=== PATIENT | female | born 1930 | race Caucasian/White ===

== ENCOUNTER 2017-08-17 17:39 | Emergency (ER) | payer MEDICARE ==
[2017-08-17 17:47] VITALS: BP 96/57
--- NOTE | 2017-08-17 18:50 | EDM.PDOC ---
ED HPI GENERAL MEDICAL PROBLEM - General Chief Complaint: Cardiovascular Problem Stated Complaint: CHF Time Seen by Provider: 08/17/17 17:46 Source of Information: Reports: Patient, RN History Limitations: Reports: Altered Mental Status, Physical Impairment - History of Present Illness INITIAL COMMENTS - FREE TEXT/NARRATIVE: 87 y.o.w.f. with H/O CHF was sent to the ed because her lasix was increased today (?). No Family no nursing staff was present. pt is no able to give a HPI due to lethargy. Pulse 95% on RA. Pulse 72 Temp 97.6 BP 120/49 RR 14-16, DNR/ DNI Onset Date: 08/15/17 Onset Time: 20:00 Duration: Day(s):, Intermittent, Waxing/Waning Location: Reports: Chest, Generalized - Related Data Allergies Allergy/AdvReac Type Severity Reaction Status Date / Time codeine Allergy unknown Verified 08/17/17 17:44 Corticosteroids Allergy unknown Verified 08/17/17 17:44 (Glucocorticoids) cortisone Allergy unknown Verified 08/17/17 17:44 loperamide Allergy unknown Verified 08/17/17 17:44 oxycodone Allergy unknown Verified 08/17/17 17:44 Penicillins Allergy unknown Verified 08/17/17 17:44 prednisone Allergy unknown Verified 08/17/17 17:44 prochlorperazine Allergy unknown Verified 08/17/17 17:44 [From Compazine] prochlorperazine edisylate Allergy unknown Verified 08/17/17 17:44 [From Compazine] prochlorperazine maleate Allergy unknown Verified 08/17/17 17:44 [From Compazine] red (food color) Allergy unknown Verified 08/17/17 17:44 ropinirole Allergy unknown Verified 08/17/17 17:44 nail bulgarian Allergy Cannot Uncoded 08/17/17 17:44 Remember Home Meds: Home Meds Diltiazem [Cardizem SR] 120 mg PO DAILY 06/24/15 [History] Levothyroxine Sodium [Synthroid] 75 mcg PO SUMOWEFRSA 06/24/15 [History] Levothyroxine [Synthroid] 88 mcg PO TUTH 06/24/15 [History] Magnesium Hydroxide [Milk of Magnesia] 30 ml PO BEDTIME PRN 06/24/15 [History] Polyethylene Glycol 3350 [MiraLAX] 1 capful PO DAILY 06/24/15 [History] Acetaminophen/HYDROcodone [[place] 325-5 MG] 1 tab PO Q3H PRN #30 tablet 06/28/15 [Rx] Aspirin [Halfprin] 81 mg PO DAILY #30 tab.ec 06/28/15 [Rx] Metoprolol Tartrate [Lopressor] 25 mg PO BID tablet 06/28/15 [Rx] Pantoprazole [ProTONIX] 40 mg PO DAILY@0600 tab.cr 06/28/15 [Rx] Past Medical History - Past Health History Medical/Surgical History: Denies Medical/Surgical History Cardiovascular History: Reports: Heart Failure, Other (See Below) Other Cardiovascular History: anemia Gastrointestinal History: Reports: Other (See Below) Other Gastrointestinal History: glucose intolerance Other Musculoskeletal History: patient has generalized weakness and a history of falls, spinal stenosis, restless leg syndrome Other Neuro History: anxiety Other Endocrine/Metabolic History: glucose intolerance, hypothyroidism, Social & Family History - Tobacco Use Smoking Status *Q: Unknown Ever Smoked Second Hand Smoke Exposure: No - Caffeine Use Caffeine Use: Reports: Coffee - Recreational Drug Use Recreational Drug Use: No ED ROS GENERAL - Review of Systems Review Of Systems: Unable To Obtain ED EXAM, GENERAL - Physical Exam Exam: See Below Exam Limited By: Physical Impairment General Appearance: Lethargic, Mild Distress, Obese (morbid) Eye Exam: Bilateral Eye: Normal Inspection Ears: Normal External Exam Ear Exam: Bilateral Ear: Auricle Normal Nose: Normal Inspection Throat/Mouth: Normal Lips, No Airway Compromise Head: Atraumatic, Normocephalic Neck: Normal Inspection, Supple, Non-Tender Respiratory/Chest: Decreased Breath Sounds (poor insp effort) Cardiovascular: Normal Peripheral Pulses GI/Abdominal: Normal Bowel Sounds, Soft (Female) Exam: Deferred Rectal (Female) Exam: Deferred Back Exam: Normal Inspection Extremities: Pedal Edema (chronic) Neurological: Inattentive, Other (unable to ambulate, bedridden) Psychiatric: Depressed Mood Skin Exam: Warm, Dry Lymphatic: No Adenopathy Course - Vital Signs Text/Narrative:: 87 y.o.w.f. with H/O CHF was sent to the ed because her lasix was increased today (?). No Family no nursing staff was present. pt is no able to give a HPI due to lethargy. Pulse 95% on RA. Pulse 72 Temp 97.6 BP 120/49 RR 14-16, DNR/ DNI PE: Morbid obese W F with poor insp efforts and basiaclly Nl vitals after lasix was given Imaging: CXR: CHF, official report is pending Impression: CHG, DNR/DNI Plan: D/C with instructions Last Recorded V/S: Last Vital Signs Temp 36.7 C 08/17/17 17:46 Pulse 71 08/17/17 17:46 Resp 16 08/17/17 17:46 BP 96/57 L 08/17/17 17:46 Pulse Ox 94 L 08/17/17 17:46 - Orders/Labs/Meds Orders: Active Orders 24 hr Category Date Time Status CXR [Chest 1V Frontal] [CR] Stat Exams 08/17/17 17:45 Taken Departure - Departure Time of Disposition: 18:49 Disposition: Home, Self-Care 01 Condition: Good Clinical Impression: CHF (congestive heart failure) Referrals: Richardson Jolly MD [Primary Care Provider] - Forms: ED Department Discharge Additional Instructions: Please cont your current meds, please f/u come back if your symptoms get worse acutely - My Orders Last 24 Hours: My Active Orders 08/17/17 17:45 CXR [Chest 1V Frontal] [CR] Stat - Assessment/Plan Last 24 Hours: My Active Orders 08/17/17 17:45 CXR [Chest 1V Frontal] [CR] Stat
--- NOTE | 2017-08-20 11:11 | CR ---
INDICATION: Short of breath. CHEST: An AP upright view of the chest was obtained portable 08/17/2017, and compared with 08/13/2017 and 03/07/2017. The chest is rotated to the left, increasing density overall on the right. There appear to be pleuroparenchymal changes at the left lung base, raising question of pneumonia and pleuritis in that area, as previously, but perhaps less prominently. Pulmonary vasculature appears to be somewhat prominent superiorly, raising question of a mild degree of CHF. The heart did appear somewhat prominent in size, but is emphasized by poor inspiration and AP positioning. No gross consolidating pneumonia was identified. Deformity is noted at the shoulders, as previously. IMPRESSION: 1. Probable mild CHF with ASHD and mild cardiomegaly. 2. Possible pleuroparenchymal change at the left lung base, raising question of pneumonia and pleuritis - correlate clinically. MTDD
== END 2017-08-17 19:00 | disposition home or self-care (01) ==
LOC: FB.ED 17:39
DX: I50.9 Heart failure, unspecified (principal); E03.9 Hypothyroidism, unspecified; Z88.5 Allergy status to narcotic agent; Z88.8 Allergy status to other drugs, medicaments and biological substances; Z88.0 Allergy status to penicillin; Z91.02 Food additives allergy status; Z79.899 Other long term (current) drug therapy
CPT/HCPCS: 71045; 99283; 99285

== ENCOUNTER 2017-08-19 14:00 | Observation (INO) | payer MEDICARE ==
[2017-08-19] MEDS ORDERED: Levofloxacin 250 MG Tab PO STA (15:40)
--- NOTE | 2017-08-19 17:53 | EDM.PDOC ---
ED HPI GENERAL MEDICAL PROBLEM - General Chief Complaint: General Stated Complaint: ALTERED MENTAL STATUS Time Seen by Provider: 08/19/17 14:12 Source of Information: Reports: Patient, [place] (from [place]) History Limitations: Reports: Altered Mental Status, Physical Impairment - History of Present Illness INITIAL COMMENTS - FREE TEXT/NARRATIVE: 87 years old w f with multiple med issues came from the [place] due slowly getting worse. Pt had hyponatremia, pt was put on fluid restriction. Pt had CHF for which she received lasix. She had poor po intake in the last few days. No trauma. Pt is not able to give a HPT, no family is present. BP 105/55 pulse 53 O2 sat 93% temp 36.6 Onset Date: 07/31/17 Onset Time: 08:00 Duration: Week(s):, Chronic Location: Reports: Chest, Generalized Severity: Moderate Improves with: Reports: Medication Worsens with: Reports: Movement - Related Data Allergies Allergy/AdvReac Type Severity Reaction Status Date / Time codeine Allergy unknown Verified 08/19/17 14:10 Corticosteroids Allergy unknown Verified 08/19/17 14:10 (Glucocorticoids) cortisone Allergy unknown Verified 08/19/17 14:10 loperamide Allergy unknown Verified 08/19/17 14:10 oxycodone Allergy unknown Verified 08/19/17 14:10 Penicillins Allergy unknown Verified 08/19/17 14:10 prednisone Allergy unknown Verified 08/19/17 14:10 prochlorperazine Allergy unknown Verified 08/19/17 14:10 [From Compazine] prochlorperazine edisylate Allergy unknown Verified 08/19/17 14:10 [From Compazine] prochlorperazine maleate Allergy unknown Verified 08/19/17 14:10 [From Compazine] red (food color) Allergy unknown Verified 08/17/17 17:44 ropinirole Allergy unknown Verified 08/17/17 17:44 nail french Allergy Cannot Uncoded 08/17/17 17:44 Remember Home Meds: Home Meds Diltiazem [Cardizem SR] 120 mg PO DAILY 06/24/15 [History] Levothyroxine Sodium [Synthroid] 75 mcg PO SUMOWEFRSA 06/24/15 [History] Levothyroxine [Synthroid] 88 mcg PO TUTH 06/24/15 [History] Magnesium Hydroxide [Milk of Magnesia] 30 ml PO BEDTIME PRN 06/24/15 [History] Polyethylene Glycol 3350 [MiraLAX] 1 capful PO DAILY 06/24/15 [History] Acetaminophen/HYDROcodone [[place] 325-5 MG] 1 tab PO Q3H PRN #30 tablet 06/28/15 [Rx] Aspirin [Halfprin] 81 mg PO DAILY #30 tab.ec 06/28/15 [Rx] Metoprolol Tartrate [Lopressor] 25 mg PO BID tablet 06/28/15 [Rx] Pantoprazole [ProTONIX] 40 mg PO DAILY@0600 tab.cr 06/28/15 [Rx] Past Medical History - Past Health History Medical/Surgical History: Denies Medical/Surgical History HEENT History: Reports: Impaired Vision Other HEENT History: wears glasses Cardiovascular History: Reports: Heart Failure, Other (See Below) Other Cardiovascular History: anemia Gastrointestinal History: Reports: Other (See Below) Other Gastrointestinal History: glucose intolerance Genitourinary History: Reports: Urinary Incontinence BORDER GUARD History: Reports: Musculoskeletal History: Reports: Other (See Below) Other Musculoskeletal History: patient has generalized weakness and a history of falls, spinal stenosis, restless leg syndrome total body lift Other Neuro History: anxiety Psychiatric History: Reports: Anxiety Endocrine/Metabolic History: Reports: Hyperthyroidism Other Endocrine/Metabolic History: glucose intolerance, hypothyroidism, Hematologic History: Reports: Anemia Social & Family History - Family History Family Medical History: Noncontributory - Tobacco Use Smoking Status *Q: Former Smoker Used Tobacco, but Quit: Yes Month Tobacco Last Used: unknown Second Hand Smoke Exposure: No - Caffeine Use Caffeine Use: Reports: Other Other Caffeine Use: patient confused - Recreational Drug Use Recreational Drug Use: No ED ROS GENERAL - Review of Systems Review Of Systems: Unable To Obtain ED EXAM, GENERAL - Physical Exam Exam: See Below Exam Limited By: Altered Mental Status General Appearance: Alert, WD/WN, Lethargic, Obese (morbid ) Eye Exam: Bilateral Eye: Normal Inspection Ears: Normal External Exam Ear Exam: Bilateral Ear: Auricle Normal Nose: Normal Inspection Throat/Mouth: Normal Lips, No Airway Compromise, Other (dry mucodsal mmebrane) Head: Atraumatic, Normocephalic Neck: Normal Inspection, Supple, Non-Tender, Full Range of Motion Respiratory/Chest: Lungs Clear (poor insp effort) Cardiovascular: Normal Peripheral Pulses Peripheral Pulses: 1+: Radial (R) GI/Abdominal: Normal Bowel Sounds, Soft (Female) Exam: Deferred Rectal (Female) Exam: Deferred Back Exam: Other (broken down skin) Extremities: Pedal Edema (chronic) Neurological: CN II-XII Intact, Slow to Respond, Other (pt is nonambulatory) Psychiatric: Depressed Mood Skin Exam: Warm, Dry Lymphatic: No Adenopathy Course - Vital Signs Text/Narrative:: 87 years old w f with multiple med issues came from the [place] due slowly getting worse. Pt had hyponatremia, pt was put on fluid restriction. Pt had CHF for which she received lasix. She had poor po intake in the last few days. No trauma. Pt is not able to give a HPT, no family is present. BP 105/55 pulse 53 O2 sat 93% temp 36.6 PE: Lethargic 89 y.o.w.f in NAD Imaging: CXR No active CHF official report is pending Labs: CBC H?H were nl, GFR 39 Na 148 K 4.4 UA pos for UTI Impression: Hypernatriemia, UTI, Dehydration, DNR/DNI Tx: Levofloxacin 4.07 pm Consultation: Dr. Queen, Hospitalist: Accepted the pt for admission for OBS Plan: Admit to [facility] Last Recorded V/S: Last Vital Signs Temp 36.6 C 08/19/17 16:45 Pulse 59 L 08/19/17 16:45 Resp 13 08/19/17 16:45 BP 122/67 08/19/17 16:45 Pulse Ox 96 08/19/17 16:45 - Orders/Labs/Meds Orders: Active Orders 24 hr Category Date Time Status Insert Urinary Catheter [OM.PC] Q24H Care 08/19/17 15:45 Ordered Chest 1V Frontal [CR] Stat Exams 08/19/17 14:08 Taken CULTURE URINE [RM] Stat Lab 08/19/17 15:08 Received Labs: Laboratory Tests 08/19/17 08/19/17 08/19/17 Range/Units 14:45 14:45 14:45 WBC 8.5 (4.5-12.0) X10-3/uL RBC 4.38 (3.23-5.20) x10(6)uL Hgb 12.7 (11.5-15.5) g/dL Hct 38.2 (30.0-51.3) % MCV 87.2 (80-96) fL MCH 28.9 (27.7-33.6) pg MCHC 33.2 (32.2-35.4) g/dL RDW 18.8 H (11.5-15.5) % Plt Count 100 L (125-369) X10(3)uL MPV 9.2 (7.4-10.4) fL Neut % (Auto) 56.6 (46-82) % Lymph % (Auto) 26.1 (13-37) % Benton % (Auto) 12.7 H (4-12) % Eos % (Auto) 4 (1.0-5.0) % Baso % (Auto) 1 (0-2) % Neut # (Auto) 4.8 (1.6-8.3) # Lymph # (Auto) 2.2 (0.6-5.0) # Benton # (Auto) 1.1 (0.0-1.3) # Eos # (Auto) 0.3 (0.0-0.8) # Baso # (Auto) 0.1 (0.0-0.2) # Sodium 148 H (135-145) mmol/L Potassium 4.4 (3.5-5.3) mmol/L Chloride 111 H (100-110) mmol/L Carbon Dioxide 28 (21-32) mmol/L BUN 25 H (7-18) mg/dL Creatinine 1.3 H (0.55-1.02) mg/dL Est Cr Clr Drug Dosing 27.95 mL/min Estimated GFR (MDRD) 39 L (>60) BUN/Creatinine Ratio 19.2 (9-20) Glucose 97 (80-116) mg/dL Lactic Acid (0.4-2.2) mmol/L Calcium 9.3 (8.6-10.2) mg/dL Creatine Kinase 54 L (60-160) IU/L Troponin I < 0.017 L (<0.017-0.056) ng/mL NT-Pro-B Natriuret Pep 1279 H* (<=450) pg/mL Urine Color (YELLOW) Urine Appearance (CLEAR) Urine pH (5.0-6.5) Ur Specific [place] (1.010-1.025) Urine Protein (NEGATIVE) mg/dL Urine Glucose (UA) (NEGATIVE) mg/dL Urine Ketones (NEGATIVE) mg/dL Urine Occult Blood (NEGATIVE) Urine Nitrite (NEGATIVE) Urine Bilirubin (NEGATIVE) Urine Urobilinogen (NEGATIVE) mg/dL Ur Leukocyte Esterase (NEGATIVE) Urine RBC (0) Urine WBC (0) Ur Squamous Epith Cells (NS,R,O) Urine Bacteria (NS) 08/19/17 08/19/17 Range/Units 14:45 15:00 WBC (4.5-12.0) X10-3/uL RBC (3.23-5.20) x10(6)uL Hgb (11.5-15.5) g/dL Hct (30.0-51.3) % MCV (80-96) fL MCH (27.7-33.6) pg MCHC (32.2-35.4) g/dL RDW (11.5-15.5) % Plt Count (125-369) X10(3)uL MPV (7.4-10.4) fL Neut % (Auto) (46-82) % Lymph % (Auto) (13-37) % Benton % (Auto) (4-12) % Eos % (Auto) (1.0-5.0) % Baso % (Auto) (0-2) % Neut # (Auto) (1.6-8.3) # Lymph # (Auto) (0.6-5.0) # Benton # (Auto) (0.0-1.3) # Eos # (Auto) (0.0-0.8) # Baso # (Auto) (0.0-0.2) # Sodium (135-145) mmol/L Potassium (3.5-5.3) mmol/L Chloride (100-110) mmol/L Carbon Dioxide (21-32) mmol/L BUN (7-18) mg/dL Creatinine (0.55-1.02) mg/dL Est Cr Clr Drug Dosing mL/min Estimated GFR (MDRD) (>60) BUN/Creatinine Ratio (9-20) Glucose (80-116) mg/dL Lactic Acid 1.6 (0.4-2.2) mmol/L Calcium (8.6-10.2) mg/dL Creatine Kinase (60-160) IU/L Troponin I (<0.017-0.056) ng/mL NT-Pro-B Natriuret Pep (<=450) pg/mL Urine Color Yellow (YELLOW) Urine Appearance Cloudy (CLEAR) Urine pH 6.5 (5.0-6.5) Ur Specific [place] 1.005 L (1.010-1.025) Urine Protein Trace (NEGATIVE) mg/dL Urine Glucose (UA) Normal (NEGATIVE) mg/dL Urine Ketones Negative (NEGATIVE) mg/dL Urine Occult Blood Large H (NEGATIVE) Urine Nitrite Positive H (NEGATIVE) Urine Bilirubin Negative (NEGATIVE) Urine Urobilinogen Normal (NEGATIVE) mg/dL Ur Leukocyte Esterase Large H (NEGATIVE) Urine RBC 0-5 (0) Urine WBC Semi-packed H (0) Ur Squamous Epith Cells Few H (NS,R,O) Urine Bacteria Many H (NS) Meds: Medications Discontinued Medications Generic Name Dose Route Start Last Admin Trade Name Nevaeh PRN Reason Stop Dose Admin Levofloxacin 500 mg 08/19/17 15:40 08/19/17 15:51 Levaquin PO 08/19/17 15:41 500 mg ONETIME STA Administration Departure - Departure Time of Disposition: 04:35 Disposition: Refer to Observation Condition: Fair Clinical Impression: Hypernatremia - Discharge Information - My Orders Last 24 Hours: My Active Orders 08/19/17 14:08 Chest 1V Frontal [CR] Stat 08/19/17 15:08 CULTURE URINE [RM] Stat 08/19/17 15:45 Insert Urinary Catheter [OM.PC] Q24H - Assessment/Plan Last 24 Hours: My Active Orders 08/19/17 14:08 Chest 1V Frontal [CR] Stat 08/19/17 15:08 CULTURE URINE [RM] Stat 08/19/17 15:45 Insert Urinary Catheter [OM.PC] Q24H
[2017-08-20] MEDS ORDERED: LEVOTHYROXINE 75 MCG PO SCH (06:00)
[2017-08-20] MEDS ORDERED: Ondansetron 4 MG Tab.DIS PO PRN (08:36)
[2017-08-20] MEDS ORDERED: Sodium Chloride 0.9% 10 ML Syringe FLUSH PRN (08:36)
[2017-08-20] MEDS ORDERED: Albuterol/Ipratropium 3.0-0.5 MG/3 ML Neb Soln*PTOM NEB PRN (08:41)
[2017-08-20] MEDS ORDERED: Enoxaparin 30 MG/0.3 ML Syringe SUBCUT SCH (08:45)
[2017-08-20] MEDS ORDERED: Polyethylene Glycol 3350 Powder 238 GM Bot PO SCH (09:00)
[2017-08-20] MEDS: ASPIRIN 81 MG PO SCH (09:31)
[2017-08-20] MEDS: DILTIAZEM 120 MG PO SCH (09:32)
[2017-08-20] MEDS: CITALOPRAM 20 MG PO SCH (09:32)
[2017-08-20] MEDS: Metoprolol Tartrate 25 MG Tab*PTOM PO SCH ×2 (09:33→21:35)
[2017-08-20] MEDS: PANTOPRAZOLE 40 MG PO SCH (09:33)
[2017-08-20] MEDS: Ciprofloxacin 250 MG Tab PO SCH ×2 (09:39→21:32)
[2017-08-20] MEDS: Pregabalin 75 MG Cap PO SCH ×2 (09:39→21:46)
[2017-08-20] MEDS: Sodium Chloride 0.9% 1,000 ML IV SCH (10:06)
--- NOTE | 2017-08-20 11:14 | HP ---
ADMISSION DATE: 08/19/2017 HISTORY OF PRESENT ILLNESS: Mal Gutierrez is an 87-year-old female, a resident of [facility] in [place], [place], was seen and evaluated at [place] and admitted to the hospital for treatment. Multiple decline in well being. Hyponatremia, CHF, progressive decline, lack of oral intake, and progressive decreased well-being. Admission to the hospital was felt to be indicated. LABORATORY DATA: Laboratory studies of significance; hemoglobin 12.7, white count 8500, and platelets 100,000. Sodium 148, chloride 111, creatinine 1.3, GFR 39, and BNP 1279. Urine markedly abnormal, positive nitrites, large leukocytes, pus cells, culture pending. Antibiotics on board. MEDICATIONS: Please see med recon list. PAST MEDICAL HISTORY: Significant for no previous surgical procedures. Chronic illnesses include spinal stenosis, osmolality, hyponatremia, chronic pain syndrome, anemia, and general decline. ALLERGIES: Multiple allergies to penicillin, acetaminophen, chlorpromazine, codeine, corticosteroids, fentanyl, meperidine, prednisone, and Robinul. SOCIAL HISTORY: Resident of [facility]. . Never smoked. No alcohol consumption. No illicit drug use. REVIEW OF SYSTEMS: Very difficult. Speech was limited. She is in apparent pain. Complains of profound headache and dizziness. Swallowing evaluation under consideration. Bowels have been a little bit reluctant. Stool softeners are in place. Shortness of breath to exertion. Denies chest pain. No blood in urine. No blood in the stool. PHYSICAL EXAMINATION: VITAL SIGNS: 36.8, 75 and irregular, blood pressure 127/78, respirations 16, and O2 saturation 95%. GENERAL: She is really soft spoken. Reasonable history. HEENT: Funduscopic benign. Bright TMs. Clear nasal discharge. Mouth and oropharynx clear. Poor dentition. NECK: Benign. Thyroid small. No carotid bruits. CHEST: Decreased breath sounds in both lung bases on auscultation. HEART: On auscultation, no ectopy or significant murmur. BREASTS: Pendulous without masses. ABDOMEN: Benign. No hepatosplenomegaly. EXTREMITIES: No edema of lower extremity. IMPRESSION: Complicated headache, vertiginous episode. Progressive decline in well being. PLAN: IV fluids, aggressive hydration, and close observation. CT scan will be performed. Swallowing study will be performed. Complementary care and well being. /[id number] KACIE/TABATHA
--- NOTE | 2017-08-20 11:16 | CR ---
INDICATION: Short of breath. CHEST: An AP upright portable view of the chest was obtained 08/19/2017, and compared with 08/17/2017 and 08/13/2017. There appears to be a significant decrease in congestion, suggesting resolving CHF. There still remains pleuroparenchymal change, however, suggested at the left lung base, emphasized by rotation to the left with the heart overlying that area. A true PA view with lateral may be helpful for further evaluation of this patient. No new acute process was suggested. No other change was seen. IMPRESSION: 1. Improving appearance of the chest, resolving CHF and interstitial lung edema. 2. Continued pleuroparenchymal changes suggested at the left lung base, which may be on the basis of pneumonia and pleuritis - correlate clinically. 3. ASHD. MTDD
[2017-08-20] MEDS: Acetaminophen/HYDROcodone 325-5 MG Tab PO SCH ×4 (11:25→21:47)
--- NOTE | 2017-08-20 14:48 | CT ---
INDICATION: Severe headache and dizzy spells. CT HEAD WITHOUT CONTRAST: Serial contiguous 2.5 and 5-mm sections were obtained through the brain without contrast and then repeated due to positioning problems with the patient. The current study is 08/20/2017 and is compared with the previous study of 06/24/2015. Total Exam DLP = 1898.72 mGy-cm. Calcifications are noted in the right vertebral and internal carotid arteries. No definite shift of midline structures is noted. The ventricles are prominent, compatible with central atrophy, similar to the previous study. White matter hypo-densities are somewhat patchy and are compatible with a mild degree of microvascular disease, similar to the previous study. No definite acute intracranial abnormality was identified - no bleeding site or hematoma was seen. Paranasal sinuses and mastoid air cells are fairly well aerated, as previously. No definite cranial abnormality was seen. IMPRESSION: 1. No definite acute intracranial abnormality identified. 2. Central atrophy unchanged from 2014. 3. Cerebrovascular disease with arterial calcifications and white matter changes, compatible with microvascular disease. Other cause of leukoencephalopathy cannot be excluded - findings are similar to the previous study of 2014. MTDD
[2017-08-20] MEDS ORDERED: Docusate Sodium/Sennosides 50-8.6 MG Tab*PTOM PO SCH (21:00)
[2017-08-20] MEDS ORDERED: ClonazePAM 1 MG Tab PO SCH (21:00)
[2017-08-21] MEDS: Sodium Chloride 0.9% 1,000 ML IV SCH (05:48)
[2017-08-21] MEDS ORDERED: LEVOTHYROXINE 88 MCG PO SCH (06:00)
[2017-08-21 08:50] VITALS: BP 96/58
[2017-08-21] MEDS: ASPIRIN 81 MG PO SCH (09:22)
[2017-08-21] MEDS: DILTIAZEM 120 MG PO SCH (09:23)
[2017-08-21] MEDS: CITALOPRAM 20 MG PO SCH (09:24)
[2017-08-21] MEDS: Ciprofloxacin 250 MG Tab PO SCH (09:25)
[2017-08-21] MEDS: Pregabalin 75 MG Cap PO SCH (09:27)
[2017-08-21] MEDS: Acetaminophen/HYDROcodone 325-5 MG Tab PO SCH (09:28)
[2017-08-21] MEDS: PANTOPRAZOLE 40 MG PO SCH (09:30)
--- NOTE | 2017-08-21 10:54 | PN ---
DATE SEEN: 08/21/2016 HISTORY OF PRESENT ILLNESS: Mal Gutierrez is an 87-year-old female, who presented with complicated and profound dizziness. CT returned aging changes, but no acute pathology. Laboratory studies upon admission were satisfactory. Mildly elevated BNP. CT scan performed on 08/20 revealed aging changes, microvascular changes, but no complicating issues. She is scheduled for a swallowing study today which had been previously recommended. PHYSICAL EXAMINATION: VITAL SIGNS: Stable. Temperature 36.6, 74 is the pulse, blood pressure 106/53, respirations 16, O2 saturations 98% on room air. HEENT: Speech is a bit dysarthric, but comfortable. CHEST: Clear. HEART: Regular. ABDOMEN: Benign. ASSESSMENT: 1. Complicated headache, resolved. 2. Eating disorder, under evaluation. PLAN: We will recheck findings. 08/21/2017 eating study. Complementary care and well-being. Proceed accordingly. /[id number] KACIE/TABATHA
[2017-08-21] MEDS: Metoprolol Tartrate 25 MG Tab*PTOM PO SCH (11:55)
--- NOTE | 2017-08-21 11:57 | CR ---
INDICATION: Coughing with liquids. SWALLOWING FUNCTION WITH VIDEO: Utilizing 9 minutes 27 seconds video fluoroscopy time with DVD recording, examination of the swallowing function of this patient was obtained with various barium-tinged meals, and revealed penetration and aspiration with thin liquids. The thicker liquids were relatively safe, starting with slightly thickened nectar. There was fairly severe retention in the valleculae, some retention also in the piriform sinuses , which was relieved by additional swallows. However, the additional swallows were difficult to initiate and dry-spoon technique was utilized successfully, intermittently. Spillage was also noted with marked delay in initiation of the swallowing mechanism which was prompted with the dry-spoon technique. IMPRESSION: 1. Thin liquids are not safe. 2. Retention is severe until additional swallows initiated by dry-spoon technique. 3. Severe spillage and delay in initiation of swallowing mechanism is noted. [facility]
--- NOTE | 2017-08-22 10:18 | DISCH ---
DISCHARGE DATE: 08/21/2017 DISCHARGE DIAGNOSES: Complicated vertigo, headache, decline in well being, accompanying urinary tract infection. HOSPITAL COURSE: Mal Gutierrez is an 87-year-old female, a resident of [facility], was seen and evaluated in the ER. Multiple declining sense of reduced wellbeing, hyponatremia, congestive heart failure, and lack of oral intake. When seen in the ER, urinary findings were problematic. Cultures were obtained. Grew a gram-negative gonzalo, particular bug not available at the time of discharge. Because of severe headache, a CT scan was performed and revealed some aging changes, but nothing pathologic. Electrolytes were satisfactory. Underwent a swallowing evaluation, recommendations for mechanical soft with honey thickened liquids. PHYSICAL EXAMINATION: GENERAL: Cooperative, conversant, and soft spoken. NECK: Benign. Thyroid small. CHEST: Clear in all lung rosario. HEART: Regular without ectopy or murmur. Distant heart sounds. ABDOMEN: Benign. Surgical scars well healed. EXTREMITIES: Well perfused. SKIN: Without rash. ASSESSMENT: 1. Headache and vertigo, resolved. 2. Urinary tract infection, progressive decline. PLAN: Medications, care and treatment appropriate. No changes or additions as appropriate. Ciprofloxacin 250 one p.o. b.i.d., 5 days' duration. Culture to follow accordingly. /[id number] /TABATHA
== END 2017-08-21 12:45 ==
LOC: FB.ED 14:00 → FB.MS 16:14
PROVIDERS: ADMIT Emergency Medicine; ATTEND Family Medicine
DX: R42 Dizziness and giddiness (principal); R51 Headache; N39.0 Urinary tract infection, site not specified; F50.9 Eating disorder, unspecified; E87.1 Hypo-osmolality and hyponatremia; I50.9 Heart failure, unspecified; M48.00 Spinal stenosis, site unspecified; G89.4 Chronic pain syndrome; D64.9 Anemia, unspecified; Z88.0 Allergy status to penicillin; Z88.5 Allergy status to narcotic agent; Z88.8 Allergy status to other drugs, medicaments and biological substances
CPT/HCPCS: 36415; 70450; 71045; 74230; 80048; 81001; 82550; 83605; 83880; 84484; 85025; 87086; 87088; 87186; 92611-GN; 93005; 96360; 96361; 99284; 99285; A9270-GY; G0378; J7040

== ENCOUNTER 2017-11-22 12:09 | Emergency (ER) | payer MEDICARE ==
--- NOTE | 2017-11-22 12:35 | EDM.PDOC ---
ED HPI GENERAL MEDICAL PROBLEM - General Chief Complaint: Respiratory Problem Stated Complaint: FEVER Time Seen by Provider: 11/22/17 12:15 Source of Information: Reports: Skilled Nursing Records, Old Records History Limitations: Reports: Altered Mental Status, Physical Impairment - History of Present Illness INITIAL COMMENTS - FREE TEXT/NARRATIVE: Mal comes into [facility] ED from [facility] with lethargy, marked chest congestion, and fever to 101.2 deg F over the past 18 hrs. There has been an least 1 emesis and some diarrhea since last pm. She has a PMH of cognitive impairments and decline in status, myelodysplastic syndrome, RA, RLS, HBP, AF, and chronic edema. - Related Data Allergies Allergy/AdvReac Type Severity Reaction Status Date / Time codeine Allergy unknown Verified 11/22/17 13:41 Corticosteroids Allergy unknown Verified 11/22/17 13:41 (Glucocorticoids) cortisone Allergy unknown Verified 11/22/17 13:41 loperamide Allergy unknown Verified 11/22/17 13:41 oxycodone Allergy unknown Verified 11/22/17 13:41 Penicillins Allergy unknown Verified 11/22/17 13:41 prednisone Allergy unknown Verified 11/22/17 13:41 prochlorperazine Allergy unknown Verified 11/22/17 13:41 [From Compazine] prochlorperazine edisylate Allergy unknown Verified 11/22/17 13:41 [From Compazine] prochlorperazine maleate Allergy unknown Verified 11/22/17 13:41 [From Compazine] red (food color) Allergy unknown Verified 11/22/17 13:41 ropinirole Allergy unknown Verified 11/22/17 13:41 nail [place] Allergy Cannot Uncoded 11/22/17 13:41 Remember Home Meds: Home Meds Levothyroxine Sodium [Synthroid] 75 mcg PO SUMOWEFRSA 06/24/15 [History] Levothyroxine [Synthroid] 88 mcg PO TUTH 06/24/15 [History] Magnesium Hydroxide [Milk of Magnesia] 30 ml PO BEDTIME PRN 06/24/15 [History] Acetaminophen [Tylenol] 650 mg PO Q4H PRN 08/19/17 [History] Acetaminophen/HYDROcodone [Boles 325-5 MG] 1 tab PO QID 08/19/17 [History] Albuterol/Ipratropium [DuoNeb 3.0-0.5 MG/3 ML] 3 ml NEB QID PRN 08/19/17 [ History] Bisacodyl [Dulcolax] 10 mg RC Q3D PRN 08/19/17 [History] Capsaicin 1 applic TOP TID 08/19/17 [History] Citalopram [Citalopram HBr] 20 mg PO DAILY 08/19/17 [History] Diltiazem HCl [Diltiazem 24Hr ER] 120 mg PO DAILY 08/19/17 [History] Fluocinonide/Emollient [Lidex-E 0.05% Crm] 15 gm TOP .BIDSUSA 08/19/17 [History] Furosemide [Lasix] 20 mg PO DAILY 08/19/17 [History] Multivitamin [Daily Multiple Vitamin] 1 tab PO DAILY 08/19/17 [History] Nystatin [Nystatin Crm] 15 gm TOP BID PRN 08/19/17 [History] Pantoprazole [ProTONIX] 40 mg PO DAILY 08/19/17 [History] Pregabalin [Lyrica] 150 mg PO BID 08/19/17 [History] Sennosides/Docusate Sodium [Senna S Tablet] 1 each PO DAILY 08/19/17 [History] Sennosides/Docusate Sodium [Senna S Tablet] 2 tab PO BEDTIME 08/19/17 [History] clonazePAM [Klonopin] 1 mg PO BEDTIME 08/19/17 [History] guaiFENesin [Robitussin] 100 mg PO Q4H PRN 08/19/17 [History] Aspirin 81 mg PO DAILY 08/20/17 [History] Aspirin 81 mg PO DAILY tab.chew 08/21/17 [Rx] Ciprofloxacin [Ciprofloxacin HCl] 250 mg PO BID #10 tablet 08/21/17 [Rx] Past Medical History - Past Health History Medical/Surgical History: Denies Medical/Surgical History HEENT History: Reports: Impaired Vision Other HEENT History: wears glasses Cardiovascular History: Reports: Heart Failure, Other (See Below) Other Cardiovascular History: anemia Gastrointestinal History: Reports: Other (See Below) Other Gastrointestinal History: glucose intolerance Genitourinary History: Reports: Urinary Incontinence 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: Musculoskeletal History: Reports: Other (See Below) Other Musculoskeletal History: patient has generalized weakness and a history of falls, spinal stenosis, restless leg syndrome total body lift Neurological History: Reports: Migraines, Other (See Below) Other Neuro History: anxiety Psychiatric History: Reports: Anxiety Other Psychiatric History: insomnia Endocrine/Metabolic History: Reports: Hyperthyroidism Other Endocrine/Metabolic History: glucose intolerance, hypothyroidism, Hematologic History: Reports: Anemia Immunologic History: Reports: Other (See Below) Other Immunologic History: rheumatoid arthritis Dermatologic History: Reports: Other (See Below) Other Dermatologic History: contact dermatitis Social & Family History - Family History Family Medical History: Noncontributory - Tobacco Use Smoking Status *Q: Former Smoker Used Tobacco, but Quit: Yes Month/Year Tobacco Last Used: unknown Second Hand Smoke Exposure: No - Caffeine Use Caffeine Use: Reports: Other Other Caffeine Use: patient confused - Recreational Drug Use Recreational Drug Use: No ED ROS GENERAL - Review of Systems Review Of Systems: Unable To Obtain ED EXAM, GENERAL - Physical Exam Exam: See Below Exam Limited By: Physical Impairment General Appearance: WD/WN, Lethargic, Moderate Distress Eye Exam: Bilateral Eye: EOMI, Normal Inspection, PERRL Ears: Normal External Exam Nose: Normal Inspection Throat/Mouth: Normal Lips, Normal Oropharynx, Other (edentulous) Head: Normocephalic Neck: Normal Inspection, Supple, Full Range of Motion Respiratory/Chest: Crackles, Rales, Rhonchi, Accessory Muscle Use Cardiovascular: Regular Rate, Rhythm, No Murmur GI/Abdominal: Normal Bowel Sounds, Soft, Non-Tender, No Organomegaly, No Distention, Other (bladder distended) (Female) Exam: Deferred Rectal (Female) Exam: Deferred Back Exam: Normal Inspection Extremities: Non-Tender, Pedal Edema Neurological: Inattentive, Confused, Slow to Respond Psychiatric: Flat Affect Skin Exam: Warm, Dry, Intact Lymphatic: No Adenopathy Course - Vital Signs Text/Narrative:: Following assessment at the [facility] ED, an IV was inserted into the R hand; screening labs noted Hgb 10.9 gm, WBC 5700, plts 89,000; CMP noted BUN 24, Cr 1.3; UA noted 10-20 WBC/HPF, cath residual 200 ml. A port chest x ray noted some obscuration of the L cardiac border suggestive of infiltrates; she was administered a Tylenol 650 mg rectal supp shortly after admission to the ED, current temp 99.1 deg F. She will empirically be treated for pneumonitis with Levaquin IV 500 mg today, and begin oral Levaquin 500 mg qd starting tomorrow at the SNF. Mal was also administered Hydrocodone 5/325 for generalized pain due to chronic RA. Her son was present, and understands treatment plan. Last Recorded V/S: Last Vital Signs Temp 37.3 C 11/22/17 13:17 Pulse 97 11/22/17 13:17 Resp 16 11/22/17 13:17 BP 100/54 L 11/22/17 13:17 Pulse Ox 95 11/22/17 13:17 - Orders/Labs/Meds Orders: Active Orders 24 hr Category Date Time Status Insert Urinary Catheter [OM.PC] Q24H Care 11/22/17 12:30 Ordered Urinary Catheter Assessment [RC] QSHIFT Care 11/22/17 12:26 Active Chest 1V Frontal [CR] Stat Exams 11/22/17 12:25 Taken CULTURE BLOOD [BC] Routine Lab 11/22/17 12:59 Received CULTURE BLOOD [BC] Stat Lab 11/22/17 12:40 Received URINALYSIS W/MICROSCOPIC [UA W/MICROSCOPIC] [URIN] Stat Lab 11/22/17 12:50 Ordered Levofloxacin/Dextrose 5%-Water [Levaquin in D5W 500 MG/ Med 11/22/17 13:48 Active 100 ML] 500 mg Premix Bag 1 bag IV ONETIME Sodium Chloride 0.9% [Saline Flush] Med 11/22/17 12:38 Active 10 ml FLUSH ASDIRECTED PRN Peripheral IV Insertion Adult [OM.PC] Routine Oth 11/22/17 12:38 Ordered Medication Orders Levofloxacin/Dextrose 500 mg/ (Premix) 100 mls @ 100 mls/hr IV ONETIME ONE Stop: 11/22/17 14:47 Last Admin: 11/22/17 14:07 Dose: 100 mls/hr Sodium Chloride (Saline Flush) 10 ml FLUSH ASDIRECTED PRN PRN Reason: Keep Vein Open Last Admin: 11/22/17 13:12 Dose: 10 ml Labs: Laboratory Tests 11/22/17 11/22/17 11/22/17 Range/Units 12:40 12:40 12:40 WBC 5.7 (4.5-12.0) X10-3/uL RBC 3.55 (3.23-5.20) x10(6)uL Hgb 10.9 L (11.5-15.5) g/dL Hct 32.8 (30.0-51.3) % MCV 92.3 (80-96) fL MCH 30.8 (27.7-33.6) pg MCHC 33.3 (32.2-35.4) g/dL RDW 16.2 H (11.5-15.5) % Plt Count 89 L (125-369) X10(3)uL MPV 9.6 (7.4-10.4) fL Add Manual Diff Yes Neutrophils % (Manual) 67 (46-82) % Band Neutrophils % 3 (0-6) % Lymphocytes % (Manual) 26 (13-37) % Monocytes % (Manual) 3 L (4-12) % Eosinophils % (Manual) 1 (0-5) % Anisocytosis Few Sodium 144 (135-145) mmol/L Potassium 4.0 (3.5-5.3) mmol/L Chloride 108 (100-110) mmol/L Carbon Dioxide 28 (21-32) mmol/L BUN 24 H D (7-18) mg/dL Creatinine 1.3 H (0.55-1.02) mg/dL Est Cr Clr Drug Dosing TNP Estimated GFR (MDRD) 39 L (>60) BUN/Creatinine Ratio 18.5 (9-20) Glucose 98 (80-116) mg/dL Lactic Acid 1.4 (0.4-2.2) mmol/L Calcium 8.3 L (8.6-10.2) mg/dL Urine Color (YELLOW) Urine Appearance (CLEAR) Urine pH (5.0-6.5) Ur Specific [place] (1.010-1.025) Urine Protein (NEGATIVE) mg/dL Urine Glucose (UA) (NEGATIVE) mg/dL Urine Ketones (NEGATIVE) mg/dL Urine Occult Blood (NEGATIVE) Urine Nitrite (NEGATIVE) Urine Bilirubin (NEGATIVE) Urine Urobilinogen (NEGATIVE) mg/dL Ur Leukocyte Esterase (NEGATIVE) Urine WBC (0) Ur Squamous Epith Cells (NS,R,O) Urine Bacteria (NS) 11/22/17 Range/Units 12:50 WBC (4.5-12.0) X10-3/uL RBC (3.23-5.20) x10(6)uL Hgb (11.5-15.5) g/dL Hct (30.0-51.3) % MCV (80-96) fL MCH (27.7-33.6) pg MCHC (32.2-35.4) g/dL RDW (11.5-15.5) % Plt Count (125-369) X10(3)uL MPV (7.4-10.4) fL Add Manual Diff Neutrophils % (Manual) (46-82) % Band Neutrophils % (0-6) % Lymphocytes % (Manual) (13-37) % Monocytes % (Manual) (4-12) % Eosinophils % (Manual) (0-5) % Anisocytosis Sodium (135-145) mmol/L Potassium (3.5-5.3) mmol/L Chloride (100-110) mmol/L Carbon Dioxide (21-32) mmol/L BUN (7-18) mg/dL Creatinine (0.55-1.02) mg/dL Est Cr Clr Drug Dosing Estimated GFR (MDRD) (>60) BUN/Creatinine Ratio (9-20) Glucose (80-116) mg/dL Lactic Acid (0.4-2.2) mmol/L Calcium (8.6-10.2) mg/dL Urine Color Yellow (YELLOW) Urine Appearance Clear (CLEAR) Urine pH 6.0 (5.0-6.5) Ur Specific [place] 1.005 L (1.010-1.025) Urine Protein Negative (NEGATIVE) mg/dL Urine Glucose (UA) Normal (NEGATIVE) mg/dL Urine Ketones Negative (NEGATIVE) mg/dL Urine Occult Blood Negative (NEGATIVE) Urine Nitrite Negative (NEGATIVE) Urine Bilirubin Negative (NEGATIVE) Urine Urobilinogen Normal (NEGATIVE) mg/dL Ur Leukocyte Esterase Negative (NEGATIVE) Urine WBC 10-20 H (0) Ur Squamous Epith Cells Few H (NS,R,O) Urine Bacteria Few H (NS) Meds: Medications Generic Name Dose Route Start Last Admin Trade Name Freq PRN Reason Stop Dose Admin Levofloxacin/Dextrose 500 mg/ 100 mls @ 100 mls/hr 11/22/17 13:48 11/22/17 14 :07 Premix IV 11/22/17 14:47 100 mls/hr ONETIME ONE Administration Sodium Chloride 10 ml 11/22/17 12:38 11/22/17 13:12 Saline Flush FLUSH 10 ml ASDIRECTED PRN Administration Keep Vein Open Discontinued Medications Generic Name Dose Route Start Last Admin Trade Name Freq PRN Reason Stop Dose Admin Acetaminophen 650 mg 11/22/17 12:39 11/22/17 13:12 Tylenol RECTAL 11/22/17 12:40 650 mg NOW ONE Administration Hydrocodone Bitart/Acetaminophen 1 tab 11/22/17 14:22 11/22/17 14:32 Boles 325-5 Mg PO 11/22/17 14:23 1 tab ONETIME ONE Administration Departure - Departure Time of Disposition: 14:43 Disposition: DC/Tfer to SNF 03 Condition: Fair Clinical Impression: Pneumonia Qualifiers: Pneumonia type: due to unspecified organism Laterality: left Lung location: lower lobe of lung Qualified Code(s): J18.1 - Lobar pneumonia, unspecified organism - Discharge Information Referrals: Richardson Jloly MD [Primary Care Provider] - Forms: ED Department Discharge - Problem List & Annotations (1) Pneumonia SNOMED Code(s): 745954283 Code(s): J18.9 - PNEUMONIA, UNSPECIFIED ORGANISM Status: Acute Current Visit: Yes Annotation/Comment:: IV Levaquin 500 mg in the ED today, then start oral Levaquin 500 mg qd tomorrow. Qualifiers: Pneumonia type: due to unspecified organism Laterality: left Lung location: lower lobe of lung Qualified Code(s): J18.1 - Lobar pneumonia, unspecified organism - Problem List Review Problem List Initiated/Reviewed/Updated: Yes - My Orders Last 24 Hours: My Active Orders 11/22/17 12:25 Chest 1V Frontal [CR] Stat 11/22/17 12:26 Urinary Catheter Assessment [RC] QSHIFT 11/22/17 12:30 Insert Urinary Catheter [OM.PC] Q24H 11/22/17 12:38 Sodium Chloride 0.9% [Saline Flush] 10 ml FLUSH ASDIRECTED PRN Peripheral IV Insertion Adult [OM.PC] Routine 11/22/17 12:40 CULTURE BLOOD [BC] Stat 11/22/17 12:50 URINALYSIS W/MICROSCOPIC [UA W/MICROSCOPIC] [URIN] Stat 11/22/17 12:59 CULTURE BLOOD [BC] Routine 11/22/17 13:48 Levofloxacin/Dextrose 5%-Water [Levaquin in D5W 500 MG/100 ML] 500 mg Premix Bag 1 bag IV ONETIME - Assessment/Plan Last 24 Hours: My Active Orders 11/22/17 12:25 Chest 1V Frontal [CR] Stat 11/22/17 12:26 Urinary Catheter Assessment [RC] QSHIFT 11/22/17 12:30 Insert Urinary Catheter [OM.PC] Q24H 11/22/17 12:38 Sodium Chloride 0.9% [Saline Flush] 10 ml FLUSH ASDIRECTED PRN Peripheral IV Insertion Adult [OM.PC] Routine 11/22/17 12:40 CULTURE BLOOD [BC] Stat 11/22/17 12:50 URINALYSIS W/MICROSCOPIC [UA W/MICROSCOPIC] [URIN] Stat 11/22/17 12:59 CULTURE BLOOD [BC] Routine 11/22/17 13:48 Levofloxacin/Dextrose 5%-Water [Levaquin in D5W 500 MG/100 ML] 500 mg Premix Bag 1 bag IV ONETIME Plan: Follow up with PCP.
[2017-11-22] MEDS ORDERED: Sodium Chloride 0.9% 10 ML Syringe FLUSH PRN (12:38)
[2017-11-22] MEDS ORDERED: Acetaminophen 650 MG Supp RECTAL ONE (12:39)
[2017-11-22] MEDS ORDERED: Levofloxacin/Dextrose 5%-Water 500 MG in Premix Bag 1 BAG IV ONE (13:48)
[2017-11-22] MEDS ORDERED: Acetaminophen/HYDROcodone 325-5 MG Tab PO ONE (14:22)
[2017-11-22 20:01] VITALS: BP 100/53
--- NOTE | 2017-11-23 09:06 | CR ---
INDICATION: Short of breath, febrile, question aspiration. CHEST: AP portable upright view of the chest was obtained. It was limited. Apparently there is motion indistinctness secondarily. The current study is 09/2017 and is compared with 08/19/2017, again revealing a pleural effusion on the left, which has increased in size. There may be infiltrates and/or atelectasis in the left lower lobe. Also, there may be some infiltrate at the right lung base with blunting of the costophrenic angle. These findings are compatible with bibasilar pneumonia and pleuritis but should be correlated clinically. Somewhat increased density centrally could represent aspiration pneumonia additionally. The heart appears enlarged. The aorta is tortuous with calcification in the arch. It is difficult to exclude a mild degree of CHF. When clinically possible, full inspiration PA and lateral views of the chest may be helpful. IMPRESSION: Cannot exclude aspiration pneumonia. Bibasilar infiltration with pleural effusions suggest pneumonia and pleuritis. A mild degree of CHF is also possible. Full inspiration PA and lateral views of the chest may be helpful when clinically possible. MTDD
== END 2017-11-22 15:32 ==
LOC: FB.ED 12:09
DX: J18.9 Pneumonia, unspecified organism (principal); I50.9 Heart failure, unspecified; E05.90 Thyrotoxicosis, unspecified without thyrotoxic crisis or storm; E03.9 Hypothyroidism, unspecified; Z88.5 Allergy status to narcotic agent; Z88.0 Allergy status to penicillin; Z88.8 Allergy status to other drugs, medicaments and biological substances; Z79.899 Other long term (current) drug therapy; Z79.82 Long term (current) use of aspirin; Z87.891 Personal history of nicotine dependence
CPT/HCPCS: 36415; 51702; 71045; 80048; 81001; 83605; 85025; 87040; 96365; 99284; A9270; J1956; J7050

== ENCOUNTER 2018-04-10 04:53 | Inpatient (IN) | payer MEDICARE ==
[2018-04-10] MEDS ORDERED: cefTRIAXone 2 GM in Sodium Chloride 0.9% 100 ML IVPUSH ONE (06:09)
[2018-04-10] MEDS ORDERED: cefTRIAXone 2 GM Vial ONE (06:12)
[2018-04-10] MEDS ORDERED: Sodium Chloride 0.9% 1,000 ML IV SCH ×2 (06:15→06:45)
[2018-04-10] MEDS ORDERED: Sodium Chloride 0.9% 100 ML ONE (06:18)
--- NOTE | 2018-04-10 06:29 | EDM.PDOC ---
ED HPI GENERAL MEDICAL PROBLEM - General Chief Complaint: Fever Stated Complaint: LETHARGIC Time Seen by Provider: 04/10/18 06:15 Source of Information: Reports: Skilled Nursing Records History Limitations: Reports: Altered Mental Status - History of Present Illness INITIAL COMMENTS - FREE TEXT/NARRATIVE: Ms Gutierrez is an 88-year-old female from [facility], with marked lethargy,disorientation and fever. Currently unclear how long she was sick for, but the nurse found at this way earlier this night with a temp until 102.5 and obtunded. This also gargling and cough with what appeared to be respiratory distress. Chest similar presentation may was diagnosed with pneumonia at that visit. She also has a history of unspeficifed encephlaopapthy,hyponatremia, rheumatoid arthritis, and myelodysplastic syndrome essentially previously stable - Related Data Allergies Allergy/AdvReac Type Severity Reaction Status Date / Time codeine Allergy unknown Verified 04/10/18 05:07 Corticosteroids Allergy unknown Verified 04/10/18 05:07 (Glucocorticoids) cortisone Allergy unknown Verified 04/10/18 05:07 loperamide Allergy unknown Verified 04/10/18 05:07 oxycodone Allergy unknown Verified 04/10/18 05:07 Penicillins Allergy unknown Verified 04/10/18 05:07 prednisone Allergy unknown Verified 04/10/18 05:07 prochlorperazine Allergy unknown Verified 04/10/18 05:07 [From Compazine] prochlorperazine edisylate Allergy unknown Verified 04/10/18 05:07 [From Compazine] prochlorperazine maleate Allergy unknown Verified 04/10/18 05:07 [From Compazine] red (food color) Allergy unknown Verified 04/10/18 05:07 ropinirole Allergy unknown Verified 04/10/18 05:07 nail lao Allergy Cannot Uncoded 04/10/18 05:07 Remember Home Meds: Home Meds Levothyroxine Sodium [Synthroid] 75 mcg PO SUMOWEFRSA 06/24/15 [History] Levothyroxine [Synthroid] 88 mcg PO TUTH 06/24/15 [History] Magnesium Hydroxide [Milk of Magnesia] 30 ml PO BEDTIME PRN 06/24/15 [History] Acetaminophen [Tylenol] 650 mg PO Q4H PRN 08/19/17 [History] Acetaminophen/HYDROcodone [[place]roe 325-5 MG] 1 tab PO QID 08/19/17 [History] Albuterol/Ipratropium [DuoNeb 3.0-0.5 MG/3 ML] 3 ml NEB QID PRN 08/19/17 [ History] Bisacodyl [Dulcolax] 10 mg RC Q3D PRN 08/19/17 [History] Capsaicin 1 applic TOP TID 08/19/17 [History] Citalopram [Citalopram HBr] 20 mg PO DAILY 08/19/17 [History] Diltiazem HCl [Diltiazem 24Hr ER] 120 mg PO DAILY 08/19/17 [History] Fluocinonide/Emollient [Lidex-E 0.05% Crm] 15 gm TOP .BIDSUSA 08/19/17 [History] Furosemide [Lasix] 40 mg PO DAILY 08/19/17 [History] Multivitamin [Daily Multiple Vitamin] 1 tab PO DAILY 08/19/17 [History] Nystatin [Nystatin Crm] 15 gm TOP BID PRN 08/19/17 [History] Pantoprazole [ProTONIX] 40 mg PO DAILY 08/19/17 [History] Pregabalin [Lyrica] 150 mg PO BID 08/19/17 [History] Sennosides/Docusate Sodium [Senna-S Tablet] 1 each PO DAILY 08/19/17 [History] Sennosides/Docusate Sodium [Senna-S Tablet] 2 tab PO BEDTIME 08/19/17 [History] clonazePAM [Klonopin] 1 mg PO BEDTIME 08/19/17 [History] guaiFENesin [Robitussin] 100 mg PO Q4H PRN 08/19/17 [History] Aspirin 81 mg PO DAILY tab.chew 08/21/17 [Rx] Potassium Chloride [Klor-Con 10] 10 meq PO DAILY 04/10/18 [History] Past Medical History - Past Health History Medical/Surgical History: Denies Medical/Surgical History HEENT History: Reports: Impaired Vision Other HEENT History: wears glasses Cardiovascular History: Reports: Heart Failure, Other (See Below) Other Cardiovascular History: anemia Gastrointestinal History: Reports: Other (See Below) Other Gastrointestinal History: glucose intolerance Genitourinary History: Reports: Urinary Incontinence 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: Musculoskeletal History: Reports: Other (See Below) Other Musculoskeletal History: patient has generalized weakness and a history of falls, spinal stenosis, restless leg syndrome total body lift Neurological History: Reports: Migraines, Other (See Below) Other Neuro History: anxiety Psychiatric History: Reports: Anxiety Other Psychiatric History: insomnia Endocrine/Metabolic History: Reports: Hyperthyroidism Other Endocrine/Metabolic History: glucose intolerance, hypothyroidism, Hematologic History: Reports: Anemia Immunologic History: Reports: Other (See Below) Other Immunologic History: rheumatoid arthritis Dermatologic History: Reports: Other (See Below) Other Dermatologic History: contact dermatitis Social & Family History - Family History Family Medical History: Noncontributory - Caffeine Use Caffeine Use: Reports: Other Other Caffeine Use: patient confused ED ROS GENERAL - Review of Systems Review Of Systems: Unable To Obtain ED EXAM, SEPSIS - Physical Exam Exam: See Below Exam Limited By: Altered Mental Status General Appearance: Obtunded Neck: Normal Inspection Respiratory/Chest: Crackles, Rales Cardiovascular: Tachycardia Extremities: Pedal Edema Course - Vital Signs Last Recorded V/S: Last Vital Signs Temp 102 F H 04/10/18 04:55 Pulse 136 H 04/10/18 04:55 Resp 21 H 04/10/18 04:55 BP Pulse Ox 93 L 04/10/18 04:55 - Orders/Labs/Meds Orders: Active Orders 24 hr Category Date Time Status EKG Documentation Completion [RC] ASDIRECTED Care 04/10/18 06:20 Active EKG Documentation Completion [RC] ASDIRECTED Care 04/10/18 06:20 Active Insert Davis Catheter [Insert Urinary Catheter] [OM.PC] Care 04/10/18 06:15 Ordered Q24H Urinary Catheter Assessment [RC] QSHIFT Care 04/10/18 06:11 Active Chest 1V Frontal [CR] Stat Exams 04/10/18 05:04 Ordered CULTURE BLOOD [BC] Stat Lab 04/10/18 05:20 Received CULTURE BLOOD [BC] Stat Lab 04/10/18 05:25 Results PRO B-TYPE NATRIUR PEPT,BNPPRO [CHEM] Stat Lab 04/10/18 05:47 Ordered Sodium Chloride 0.9% [Normal Saline] 1,000 ml Med 04/10/18 06:15 Active IV ASDIRECTED cefTRIAXone [Rocephin] 2 gm Med 04/10/18 06:09 Active Sodium Chloride 0.9% [Normal Saline] 100 ml IVPUSH ONETIME EKG 12 Lead [EK] Routine Ther 04/10/18 06:20 Ordered Medication Orders Ceftriaxone Sodium 2 gm/ (Sodium Chloride) 100 mls @ 200 mls/hr IVPUSH ONETIME ONE Stop: 04/10/18 06:38 Last Admin: 04/10/18 06:20 Dose: 200 mls/hr Sodium Chloride (Normal Saline) 1,000 mls @ 999 mls/hr IV ASDIRECTED [facility] Labs: Laboratory Tests 04/10/18 04/10/18 04/10/18 Range/Units 05:20 05:20 05:20 WBC 15.0 H (4.5-12.0) X10-3/uL RBC 3.75 (3.23-5.20) x10(6)uL Hgb 11.6 (11.5-15.5) g/dL Hct 34.7 (30.0-51.3) % MCV 92.5 (80-96) fL MCH 30.8 (27.7-33.6) pg MCHC 33.3 (32.2-35.4) g/dL RDW 15.9 H (11.5-15.5) % Plt Count 78 L (125-369) X10(3)uL MPV 8.9 (7.4-10.4) fL Add Manual Diff Yes Neutrophils % (Manual) 86 H (46-82) % Band Neutrophils % 2 (0-6) % Lymphocytes % (Manual) 10 L (13-37) % Monocytes % (Manual) 2 L (4-12) % Sodium 143 (135-145) mmol/L Potassium 3.3 L (3.5-5.3) mmol/L Chloride 106 (100-110) mmol/L Carbon Dioxide 27 (21-32) mmol/L BUN 20 H (7-18) mg/dL Creatinine 1.4 H (0.55-1.02) mg/dL Est Cr Clr Drug Dosing 25.47 mL/min Estimated GFR (MDRD) 36 L (>60) BUN/Creatinine Ratio 14.3 (9-20) Glucose 94 (80-116) mg/dL Calcium 8.3 L (8.6-10.2) mg/dL Total Bilirubin 1.1 (0.1-1.3) mg/dL AST 26 H (5-25) IU/L ALT 16 D (12-36) U/L Alkaline Phosphatase 72 (56-112) IU/L C-Reactive Protein 4.2 H* (0.5-0.9) mg/dL Total Protein 6.4 (6.0-8.0) g/dL Albumin 2.3 L (3.2-4.6) g/dL Globulin 4.1 g/dL Albumin/Globulin Ratio 0.6 Urine Color (YELLOW) Urine Appearance (CLEAR) Urine pH (5.0-6.5) Ur Specific [place] (1.010-1.025) Urine Protein (NEGATIVE) mg/dL Urine Glucose (UA) (NEGATIVE) mg/dL Urine Ketones (NEGATIVE) mg/dL Urine Occult Blood (NEGATIVE) Urine Nitrite (NEGATIVE) Urine Bilirubin (NEGATIVE) Urine Urobilinogen (NEGATIVE) mg/dL Ur Leukocyte Esterase (NEGATIVE) Urine RBC (0) Urine WBC (0) Ur Squamous Epith Cells (NS,R,O) Urine Bacteria (NS) 04/10/18 Range/Units 05:47 WBC (4.5-12.0) X10-3/uL RBC (3.23-5.20) x10(6)uL Hgb (11.5-15.5) g/dL Hct (30.0-51.3) % MCV (80-96) fL MCH (27.7-33.6) pg MCHC (32.2-35.4) g/dL RDW (11.5-15.5) % Plt Count (125-369) X10(3)uL MPV (7.4-10.4) fL Add Manual Diff Neutrophils % (Manual) (46-82) % Band Neutrophils % (0-6) % Lymphocytes % (Manual) (13-37) % Monocytes % (Manual) (4-12) % Sodium (135-145) mmol/L Potassium (3.5-5.3) mmol/L Chloride (100-110) mmol/L Carbon Dioxide (21-32) mmol/L BUN (7-18) mg/dL Creatinine (0.55-1.02) mg/dL Est Cr Clr Drug Dosing mL/min Estimated GFR (MDRD) (>60) BUN/Creatinine Ratio (9-20) Glucose (80-116) mg/dL Calcium (8.6-10.2) mg/dL Total Bilirubin (0.1-1.3) mg/dL AST (5-25) IU/L ALT (12-36) U/L Alkaline Phosphatase (56-112) IU/L C-Reactive Protein (0.5-0.9) mg/dL Total Protein (6.0-8.0) g/dL Albumin (3.2-4.6) g/dL Globulin g/dL Albumin/Globulin Ratio Urine Color Yellow (YELLOW) Urine Appearance Clear (CLEAR) Urine pH 5.0 (5.0-6.5) Ur Specific [place] 1.015 (1.010-1.025) Urine Protein Negative (NEGATIVE) mg/dL Urine Glucose (UA) Normal (NEGATIVE) mg/dL Urine Ketones Negative (NEGATIVE) mg/dL Urine Occult Blood Negative (NEGATIVE) Urine Nitrite Negative (NEGATIVE) Urine Bilirubin Small H (NEGATIVE) Urine Urobilinogen Normal (NEGATIVE) mg/dL Ur Leukocyte Esterase Small H (NEGATIVE) Urine RBC 0-5 (0) Urine WBC 0-5 (0) Ur Squamous Epith Cells Occasional (NS,R,O) Urine Bacteria Rare H (NS) Meds: Medications Generic Name Dose Route Start Last Admin Trade Name Freq PRN Reason Stop Dose Admin Ceftriaxone Sodium 2 gm/ 100 mls @ 200 mls/hr 04/10/18 06:09 04/10/18 06:20 Sodium Chloride IVPUSH 04/10/18 06:38 200 mls/hr ONETIME ONE Administration Sodium Chloride 1,000 mls @ 999 mls/hr 04/10/18 06:15 Normal Saline IV ASDIRECTED KARYNA Discontinued Medications Generic Name Dose Route Start Last Admin Trade Name Freq PRN Reason Stop Dose Admin Ceftriaxone Sodium Confirm 04/10/18 06:12 Rocephin Administered 04/10/18 06:13 Dose 2 gm .ROUTE .STK-MED ONE Sodium Chloride Confirm 04/10/18 06:18 Normal Saline Administered 04/10/18 06:19 Dose 100 mls @ as directed .ROUTE .STK-MED ONE Departure - Departure Time of Disposition: 06:32 Disposition: Admitted As Inpatient 67 Clinical Impression: Pneumonia, Delirium, Septic shock - Discharge Information Referrals: Richardson Jolly MD [Primary Care Provider] - - Problem List & Annotations (1) Pneumonia SNOMED Code(s): 013564974 Code(s): J18.9 - PNEUMONIA, UNSPECIFIED ORGANISM Status: Acute Current Visit: No Annotation/Comment:: IV Levaquin 500 mg in the ED today, then start oral Levaquin 500 mg qd tomorrow. Qualifiers: Pneumonia type: due to unspecified organism Laterality: left Lung location: lower lobe of lung Qualified Code(s): J18.1 - Lobar pneumonia, unspecified organism (2) Septic shock SNOMED Code(s): 05321690 Code(s): A41.9 - SEPSIS, UNSPECIFIED ORGANISM; R65.21 - SEVERE SEPSIS WITH SEPTIC SHOCK Status: Acute Current Visit: Yes (3) Delirium SNOMED Code(s): 2399602 Code(s): R41.0 - DISORIENTATION, UNSPECIFIED Status: Acute Current Visit : Yes (4) CHF (congestive heart failure) SNOMED Code(s): 15786471 Code(s): I50.9 - HEART FAILURE, UNSPECIFIED Status: Acute Current Visit: No Qualifiers: Heart failure chronicity: unspecified - Problem List Review Problem List Initiated/Reviewed/Updated: Yes - My Orders Last 24 Hours: My Active Orders 04/10/18 05:04 Chest 1V Frontal [CR] Stat 04/10/18 05:20 CULTURE BLOOD [BC] Stat 04/10/18 05:25 CULTURE BLOOD [BC] Stat 04/10/18 05:47 PRO B-TYPE NATRIUR PEPT,BNPPRO [CHEM] Stat 04/10/18 06:09 cefTRIAXone [Rocephin] 2 gm Sodium Chloride 0.9% [Normal Saline] 100 ml IVPUSH ONETIME 04/10/18 06:11 Urinary Catheter Assessment [RC] QSHIFT 04/10/18 06:15 Insert Davis Catheter [Insert Urinary Catheter] [OM.PC] Q24H Sodium Chloride 0.9% [Normal Saline] 1,000 ml IV ASDIRECTED 04/10/18 06:20 EKG Documentation Completion [RC] ASDIRECTED EKG Documentation Completion [RC] ASDIRECTED EKG 12 Lead [EK] Routine - Assessment/Plan Last 24 Hours: My Active Orders 04/10/18 05:04 Chest 1V Frontal [CR] Stat 04/10/18 05:20 CULTURE BLOOD [BC] Stat 04/10/18 05:25 CULTURE BLOOD [BC] Stat 04/10/18 05:47 PRO B-TYPE NATRIUR PEPT,BNPPRO [CHEM] Stat 04/10/18 06:09 cefTRIAXone [Rocephin] 2 gm Sodium Chloride 0.9% [Normal Saline] 100 ml IVPUSH ONETIME 04/10/18 06:11 Urinary Catheter Assessment [RC] QSHIFT 04/10/18 06:15 Insert Davis Catheter [Insert Urinary Catheter] [OM.PC] Q24H Sodium Chloride 0.9% [Normal Saline] 1,000 ml IV ASDIRECTED 04/10/18 06:20 EKG Documentation Completion [RC] ASDIRECTED EKG Documentation Completion [RC] ASDIRECTED EKG 12 Lead [EK] Routine Plan: X-ray does show possible pneumonia on both lung rosario although it's a 1 view[place] [address]. Based on presentation I presume she has pneumonia causing sepsis. I ve given 1 L of normal saline as a bolus and will continue with 125 hour,closely observe output,chf symtpoms. 2 g of Rocephin was given as well,and Levaquin and vancomycin for presumptive septic shock. Blood and urine cultures pending.Patient will be admitted to the ICU floor for further treatment.
[2018-04-10] MEDS ORDERED: Ondansetron 4 MG/2 ML SDV IV PRN (06:34)
[2018-04-10] MEDS: Levofloxacin/Dextrose 5%-Water 500 MG in Premix Bag 1 BAG IV ONE ×2 (06:51→07:00)
[2018-04-10] MEDS ORDERED: Levofloxacin/Dextrose 5%-Water 100 ML IV ONE (06:51)
[2018-04-10] MEDS ORDERED: Albuterol/Ipratropium 3.0-0.5 MG/3 ML Neb Soln NEB SCH (07:00)
[2018-04-10] MEDS ORDERED: Azithromycin 250 MG in Sodium Chloride 0.9% 250 ML IV SCH ×5 (09:15→10:45)
[2018-04-10] MEDS ORDERED: Azithromycin 500 MG in Sodium Chloride 0.9% 250 ML IV SCH (11:00)
[2018-04-10] MEDS: Albuterol/Ipratropium 3.0-0.5 MG/3 ML Neb Soln NEB SCH ×3 (11:20→20:46)
[2018-04-10] MEDS: Azithromycin 500 MG in Sodium Chloride 0.9% 250 ML IV SCH (11:33)
[2018-04-10] MEDS: Citalopram 20 MG Tab PO SCH (11:42)
--- NOTE | 2018-04-10 11:43 | HP ---
ADMISSION DATE: 04/10/2018 REASON FOR VISIT: Complicated febrile illness. HISTORY OF PRESENT ILLNESS: Mal Gutierrez is an 88-year-old female, a resident of [facility], was seen in the emergency room. She presented with complicated cough, low-grade fever, increasing disability, and disorientation. Fever spiked to 102, became less responsive. Gurgling respirations, complicated cough, and distress. Seen at [facility] ER, evaluation revealed evidence of a pneumonia, and intervention to the hospital as appropriate. We gave her one dose of Rocephin and levofloxacin. History not clearly available on the patient's part. I spoke with the nursing staff. PRESENT MEDICATIONS: Please see med recon list. Reports from [facility] revealed evidence of no documented surgeries. She has a history of chronic pain syndrome, anemia, hypothyroidism, and progressive dementia. ALLERGIES: Penicillin, acetaminophen, chlorpromazine, codeine, corticosteroid, fentanyl, meperidine, prednisone, and Robinul by report. SOCIAL HISTORY: Circumstances not known. Lives at local correction. REVIEW OF SYSTEMS: No history readily available upon questioning. PHYSICAL EXAMINATION: VITAL SIGNS: 72.57 kilos, 37.8 degrees Fahrenheit, blood pressure 92/50, and O2 saturation 96% on room air. GENERAL: Wakeful, but unresponsive, not spontaneous. HEENT: Funduscopic benign. Conjunctivae clear. Bright tympanic membranes. Clear nasal discharge. Mouth and oropharynx clear. Difficulty exam of oropharynx. NECK: Benign. No meningismus. CHEST: Coarse rhonchi, diffuse wheezing throughout all lung rosario. HEART: Distant heart sounds. Occasional ectopy. No obvious murmur. ABDOMEN: Benign. No hepatosplenomegaly. AND RECTAL: Deferred. EXTREMITIES: Cool, but perfused. Reflex symmetric. Sensation normal. LABORATORY STUDIES: White count 15,000, hemoglobin 11.6, platelets decreased at 78,000. Electrolytes satisfactory. Low potassium at 3.3. CRP 4.2. BNP 7161. Chest x-ray, bilateral pneumonia. ASSESSMENT: Complicated pneumonia, at risk patient, correction visit. PLAN: Three drug therapy, azithromycin, Rocephin, and IV levofloxacin. Complementary care and well being, aggressive oral intervention, sputum cultures as appropriate. DNR by observation. /[id number] KACIE/TABATHA
[2018-04-10] MEDS: Levothyroxine 75 MCG Tab PO SCH (11:48)
[2018-04-10] MEDS: NS + KCl 20mEq/L 1,000 ML IV SCH (12:41)
[2018-04-10] MEDS ORDERED: Sodium Chloride 0.9% 200 ML IV ONE (16:20)
[2018-04-10] MEDS ORDERED: Digoxin 500 MCG/2 ML Amp IVPUSH ONE (19:04)
[2018-04-10] MEDS: Pregabalin 75 MG Cap PO SCH (20:46)
[2018-04-10] MEDS: ClonazePAM 1 MG Tab PO SCH (20:46)
[2018-04-11] MEDS ORDERED: Digoxin 500 MCG/2 ML Amp IVPUSH ONE (03:38)
[2018-04-11] MEDS: NS + KCl 20mEq/L 1,000 ML IV SCH ×4 (04:52→19:37)
[2018-04-11] MEDS: cefTRIAXone 2 GM Vial IVPUSH SCH (05:55)
[2018-04-11] MEDS ORDERED: Levothyroxine 88 MCG Tab PO SCH (06:00)
--- NOTE | 2018-04-11 07:46 | PN ---
DATE SEEN: 04/10/2018 1900 hours. Mal Gutierrez is an 88-year-old female, admitted with significant respiratory distress and pneumonia. Has had some episodes of hypotension and tachypnea, tachycardia secondary to atrial fibrillation, and distress. Rate controlled with 0.125 of digoxin. I spoke with son about intervention and care in terms of dopaminergic agents to elevate blood pressure. Pressure improved, bolus was satisfactory, digoxin was given. We will continue IV fluids and treatment and supportive management. DNR to be respected. /[id number] KACIE/TABATHA
[2018-04-11] MEDS ORDERED: Levofloxacin/Dextrose 5%-Water 250 MG in Premix Bag 1 BAG IV SCH (08:00)
--- NOTE | 2018-04-11 08:45 | PCM.PN ---
- General Info Date of Service: 04/11/18 Admission Dx/Problem (Free Text): This 88-year-old female patient with pneumonia. She has history of CHF. Patient states she feels little short of breath as a leg swelling. She has no fevers, chills, chest pain. She does have a cough. Nurses report that she gained 9 pounds from yesterday. - Patient Data Vitals - Most Recent: Last Vital Signs Temp 99.1 F 04/11/18 07:31 Pulse 122 H 04/11/18 07:31 Resp 18 04/11/18 07:31 BP 144/124 H 04/11/18 07:31 Pulse Ox 97 04/11/18 07:31 Weight - Most Recent: 169 lb 4.8 oz I&O - Last 24 Hours: Intake & Output 04/10/18 04/11/18 04/11/18 22:59 06:59 14:59 Intake Total 1762 906 100 Output Total 300 250 40 Balance 1462 656 60 Lab Results Last 24 Hours: Laboratory Results - last 24 hr 04/11/18 04/11/18 Range/Units 06:10 06:10 WBC 18.5 H (4.5-12.0) X10-3/uL RBC 3.19 L (3.23-5.20) x10(6)uL Hgb 10.2 L (11.5-15.5) g/dL Hct 29.9 L (30.0-51.3) % MCV 93.6 (80-96) fL MCH 31.9 (27.7-33.6) pg MCHC 34.0 (32.2-35.4) g/dL RDW 16.1 H (11.5-15.5) % Plt Count 53 L (125-369) X10(3)uL MPV 9.6 (7.4-10.4) fL Add Manual Diff Yes Neutrophils % (Manual) 72 (46-82) % Band Neutrophils % 8 H (0-6) % Lymphocytes % (Manual) 13 (13-37) % Monocytes % (Manual) 7 (4-12) % Sodium 143 (135-145) mmol/L Potassium 4.2 (3.5-5.3) mmol/L Chloride 108 (100-110) mmol/L Carbon Dioxide 26 (21-32) mmol/L BUN 23 H (7-18) mg/dL Creatinine 1.2 H (0.55-1.02) mg/dL Est Cr Clr Drug Dosing 29.72 mL/min Estimated GFR (MDRD) 42 L (>60) BUN/Creatinine Ratio 19.2 (9-20) Glucose 83 (80-116) mg/dL Calcium 7.8 L (8.6-10.2) mg/dL Total Bilirubin 0.6 (0.1-1.3) mg/dL AST 46 H D (5-25) IU/L ALT 14 D (12-36) U/L Alkaline Phosphatase 55 L (56-112) IU/L Total Protein 5.8 L (6.0-8.0) g/dL Albumin 1.9 L (3.2-4.6) g/dL Globulin 3.9 g/dL Albumin/Globulin Ratio 0.5 Gerald Results Last 24 Hours: Microbiology 04/10/18 05:25 Aerobic Blood Culture - Preliminary Blood NO GROWTH AFTER 1 DAY Anaerobic Blood Culture - Final 04/10/18 05:20 Aerobic Blood Culture - Preliminary Blood NO GROWTH AFTER 1 DAY Anaerobic Blood Culture - Preliminary NO GROWTH AFTER 1 DAY Med Orders - Current: Current Medications Albuterol/Ipratropium (Duoneb 3.0-0.5 Mg/3 Ml) 3 ml NEB QIDRT [facility] Last Admin: 04/10/18 20:46 Dose: 3 ml Aspirin (Aspirin) 81 mg PO DAILY [facility] Ceftriaxone Sodium (Rocephin) 2 gm IVPUSH Q24H [facility] Last Admin: 04/11/18 05:55 Dose: 2 gm Citalopram Hydrobromide (Celexa) 20 mg PO DAILY [facility] Last Admin: 04/10/18 11:42 Dose: Not Given Clonazepam (Klonopin) 1 mg PO BEDTIME [facility] Last Admin: 04/10/18 20:46 Dose: 1 mg Potassium Chloride/Sodium Chloride (Normal Saline With 20 Meq Kcl) 1,000 mls @ 75 mls/hr IV Q13H [facility] Last Admin: 04/11/18 05:49 Dose: Not Given Azithromycin 500 mg/ Sodium (Chloride) 250 mls @ 250 mls/hr IV Q24H [facility] Last Admin: 04/10/18 11:33 Dose: 250 mls/hr Levothyroxine Sodium (Synthroid) 88 mcg PO TuTh@0600 [facility] Last Admin: 04/11/18 05:55 Dose: 88 mcg Levothyroxine Sodium (Levothyroxine) 75 mcg PO SuMoWeFrSa@0600 [facility] Last Admin: 04/10/18 11:48 Dose: Not Given Pregabalin (Lyrica) 150 mg PO BID [facility] Last Admin: 04/10/18 20:46 Dose: 150 mg Discontinued Medications Albuterol/Ipratropium (Duoneb 3.0-0.5 Mg/3 Ml) 3 ml NEB QIDRT [facility] Last Admin: 04/10/18 07:33 Dose: 3 ml Ceftriaxone Sodium (Rocephin) Confirm Administered Dose 2 gm .ROUTE .STK-MED ONE Stop: 04/10/18 06:13 Last Admin: 04/10/18 06:40 Dose: Not Given Digoxin (Lanoxin) 125 mcg IVPUSH ONETIME ONE Stop: 04/10/18 19:05 Last Admin: 04/10/18 20:34 Dose: 125 mcg Digoxin (Lanoxin) 125 mcg IVPUSH ONETIME ONE Stop: 04/11/18 03:39 Last Admin: 04/11/18 03:54 Dose: 125 mcg Ceftriaxone Sodium 2 gm/ (Sodium Chloride) 100 mls @ 200 mls/hr IVPUSH ONETIME ONE Stop: 04/10/18 06:38 Last Admin: 04/10/18 06:20 Dose: 200 mls/hr Sodium Chloride (Normal Saline) 1,000 mls @ 999 mls/hr IV ASDIRECTED [facility] Last Admin: 04/10/18 06:00 Dose: 999 mls/hr Sodium Chloride (Normal Saline) Confirm Administered Dose 100 mls @ as directed .ROUTE .STK-MED ONE Stop: 04/10/18 06:19 Last Admin: 04/10/18 06:40 Dose: Not Given Levofloxacin/Dextrose 500 mg/ (Premix) 100 mls @ 100 mls/hr IV ONETIME ONE Stop: 04/10/18 07:33 Last Admin: 04/10/18 07:00 Dose: 100 mls/hr Sodium Chloride (Normal Saline) 1,000 mls @ 125 mls/hr IV ASDIRECTED [facility] Last Admin: 04/10/18 07:00 Dose: 125 mls/hr Vancomycin HCl 1,000 mg/ (Sodium Chloride) 250 mls @ 167 mls/hr IV ONETIME ONE Stop: 04/10/18 08:03 Last Admin: 04/10/18 09:20 Dose: 167 mls/hr Levofloxacin/Dextrose (Levaquin In D5w 500 Mg/100 Ml) Confirm Administered Dose 100 mls @ as directed IV .STK-MED ONE Stop: 04/10/18 06:52 Last Admin: 04/10/18 07:24 Dose: Not Given Azithromycin 250 mg/ Sodium (Chloride) 250 mls @ 250 mls/hr IV Q24H KARYNA Last Admin: 04/10/18 15:01 Dose: Not Given Levofloxacin/Dextrose 250 mg/ (Premix) 50 mls @ 50 mls/hr IV Q24H KARYNA Sodium Chloride (Normal Saline) 200 mls @ 400 mls/hr IV BOLUS ONE Stop: 04/10/18 16:49 Last Admin: 04/10/18 16:47 Dose: 400 mls/hr Ondansetron HCl (Zofran) 4 mg IV Q4H PRN PRN Reason: Nausea/Vomiting - Exam General: Alert, Cooperative. No: Oriented Neck: Supple Lungs: Normal Respiratory Effort, Rales, Other (She does move good air.) Cardiovascular: No Murmurs, Tachycardia GI/Abdominal Exam: Soft, Non-Tender Extremities: Pedal Edema (1+) Psy/Mental Status: Alert - Problem List & Annotations (1) Renal failure (ARF), acute on chronic SNOMED Code(s): 709539635 Code(s): N17.9 - ACUTE KIDNEY FAILURE, UNSPECIFIED; N18.9 - CHRONIC KIDNEY DISEASE, UNSPECIFIED Status: Acute Current Visit: Yes (2) Palliative care status SNOMED Code(s): 759250782 Code(s): Z51.5 - ENCOUNTER FOR PALLIATIVE CARE Status: Acute Current Visit: Yes (3) Thrombocytopenia SNOMED Code(s): 293099763 Code(s): D69.6 - THROMBOCYTOPENIA, UNSPECIFIED Status: Acute Current Visit: Yes (4) Delirium SNOMED Code(s): 7853883 Code(s): R41.0 - DISORIENTATION, UNSPECIFIED Status: Acute Current Visit : Yes (5) Pneumonia SNOMED Code(s): 493536728 Code(s): J18.9 - PNEUMONIA, UNSPECIFIED ORGANISM Status: Acute Current Visit: Yes Qualifiers: Pneumonia type: due to unspecified organism Laterality: left Lung location: lower lobe of lung Qualified Code(s): J18.1 - Lobar pneumonia, unspecified organism Annotation/Comment:: IV Levaquin 500 mg in the ED today, then start oral Levaquin 500 mg qd tomorrow. (6) CHF (congestive heart failure) SNOMED Code(s): 66140746 Code(s): I50.9 - HEART FAILURE, UNSPECIFIED Status: Acute Current Visit: No Qualifiers: Heart failure chronicity: unspecified (7) Confusion SNOMED Code(s): 258118466 Code(s): R41.0 - DISORIENTATION, UNSPECIFIED Status: Acute Priority: Medium Current Visit: No - Problem List Review Problem List Initiated/Reviewed/Updated: Yes - Plan Plan:: 1. Continue antibiotic care. 2. Patient was given dig last night. Her heart rates a little elevated. Her blood pressures been low so I'm going to watch it for a while before I decide to her rate controlling agent. 3. Start her by mouth Lasix from home. She is on 20 mg twice a day. 4. Patient is a contraindication to anticoagulation because of her low platelets under 100. 5. Continue IV fluids at the same rate. 6. Repeat BMP
[2018-04-11] MEDS ORDERED: Furosemide 40 MG Tab PO SCH (09:00)
[2018-04-11] MEDS: Aspirin 81 MG Tab.Chew PO SCH (10:16)
[2018-04-11] MEDS: Citalopram 20 MG Tab PO SCH (10:17)
[2018-04-11] MEDS: Potassium Chloride 10 MEQ Tab.ER PO SCH (10:17)
[2018-04-11] MEDS: Pantoprazole 40 MG Tab.CR PO SCH (10:18)
[2018-04-11] MEDS: Diltiazem 120 MG Cap.CD PO SCH (10:20)
[2018-04-11] MEDS: Pregabalin 75 MG Cap PO SCH ×2 (10:20→20:50)
[2018-04-11] MEDS: Azithromycin 500 MG in Sodium Chloride 0.9% 250 ML IV SCH (11:31)
[2018-04-11] MEDS: Albuterol/Ipratropium 3.0-0.5 MG/3 ML Neb Soln NEB SCH ×4 (13:37→20:50)
[2018-04-11] MEDS: ClonazePAM 1 MG Tab PO SCH (20:50)
[2018-04-12] MEDS: NS + KCl 20mEq/L 1,000 ML IV SCH (03:22)
[2018-04-12] MEDS: Levothyroxine 75 MCG Tab PO SCH (05:55)
[2018-04-12] MEDS: Pantoprazole 40 MG Tab.CR PO SCH (05:55)
[2018-04-12] MEDS: cefTRIAXone 2 GM Vial IVPUSH SCH (05:56)
[2018-04-12] MEDS: Albuterol/Ipratropium 3.0-0.5 MG/3 ML Neb Soln NEB SCH ×5 (07:05→20:04)
--- NOTE | 2018-04-12 08:12 | PCM.PN ---
- General Info Date of Service: 04/12/18 Admission Dx/Problem (Free Text): Patient states she still has a cough but feels better. She denies fevers, chills , nasal congestion, shortness of breath. Nurses report she's not taking much oral intake at this time. - Patient Data Vitals - Most Recent: Last Vital Signs Temp 97.2 F 04/12/18 08:00 Pulse 90 04/12/18 08:00 Resp 20 04/12/18 08:00 BP 117/80 04/12/18 08:00 Pulse Ox 96 04/12/18 08:00 Weight - Most Recent: 175 lb 3.2 oz I&O - Last 24 Hours: Intake & Output 04/11/18 04/12/18 04/12/18 22:59 06:59 14:59 Intake Total 1594 601 Output Total 400 Balance 1194 601 Lab Results Last 24 Hours: Laboratory Results - last 24 hr 04/11/18 04/12/18 04/12/18 Range/Units 06:00 06:15 06:15 WBC 13.6 H (4.5-12.0) X10-3/uL RBC 3.28 (3.23-5.20) x10(6)uL Hgb 10.3 L (11.5-15.5) g/dL Hct 30.9 (30.0-51.3) % MCV 94.4 (80-96) fL MCH 31.3 (27.7-33.6) pg MCHC 33.1 (32.2-35.4) g/dL RDW 16.8 H (11.5-15.5) % Plt Count 61 L (125-369) X10(3)uL MPV 9.9 (7.4-10.4) fL Neut % (Auto) 78.5 (46-82) % Lymph % (Auto) 13.5 (13-37) % Kimball % (Auto) 7.1 (4-12) % Eos % (Auto) 1 (1.0-5.0) % Baso % (Auto) 0 (0-2) % Neut # (Auto) 10.7 H (1.6-8.3) # Lymph # (Auto) 1.8 (0.6-5.0) # Kimball # (Auto) 1.0 (0.0-1.3) # Eos # (Auto) 0.1 (0.0-0.8) # Baso # (Auto) 0.0 (0.0-0.2) # Sodium 143 (135-145) mmol/L Potassium 4.3 (3.5-5.3) mmol/L Chloride 109 (100-110) mmol/L Carbon Dioxide 26 (21-32) mmol/L BUN 23 H (7-18) mg/dL Creatinine 1.1 H (0.55-1.02) mg/dL Est Cr Clr Drug Dosing 32.42 mL/min Estimated GFR (MDRD) 47 L (>60) BUN/Creatinine Ratio 20.9 H (9-20) Glucose 95 (80-116) mg/dL Calcium 8.0 L (8.6-10.2) mg/dL Total Bilirubin 0.6 (0.1-1.3) mg/dL AST 56 H D (5-25) IU/L ALT 20 D (12-36) U/L Alkaline Phosphatase 75 (56-112) IU/L NT-Pro-B Natriuret Pep 7788 H* (<=450) pg/mL Total Protein 6.0 (6.0-8.0) g/dL Albumin 2.0 L (3.2-4.6) g/dL Globulin 4.0 g/dL Albumin/Globulin Ratio 0.5 Gerald Results Last 24 Hours: Microbiology 04/10/18 05:25 Aerobic Blood Culture - Preliminary Blood NO GROWTH AFTER 2 DAYS Anaerobic Blood Culture - Final 04/10/18 05:20 Aerobic Blood Culture - Preliminary Blood NO GROWTH AFTER 2 DAYS Anaerobic Blood Culture - Preliminary NO GROWTH AFTER 2 DAYS Med Orders - Current: Current Medications Albuterol/Ipratropium (Duoneb 3.0-0.5 Mg/3 Ml) 3 ml NEB QIDRT [facility] Last Admin: 04/12/18 07:05 Dose: 3 ml Aspirin (Aspirin) 81 mg PO DAILY [facility] Last Admin: 04/11/18 10:16 Dose: 81 mg Ceftriaxone Sodium (Rocephin) 2 gm IVPUSH Q24H [facility] Last Admin: 04/12/18 05:56 Dose: 2 gm Citalopram Hydrobromide (Celexa) 20 mg PO DAILY [facility] Last Admin: 04/11/18 10:17 Dose: 20 mg Clonazepam (Klonopin) 1 mg PO BEDTIME [facility] Last Admin: 04/11/18 20:50 Dose: 1 mg Diltiazem HCl (Cardizem Cd) 120 mg PO DAILY [facility] Last Admin: 04/11/18 10:20 Dose: 120 mg Potassium Chloride/Sodium Chloride (Normal Saline With 20 Meq Kcl) 1,000 mls @ 75 mls/hr IV Q13H [facility] Last Admin: 04/12/18 03:22 Dose: Not Given Azithromycin 500 mg/ Sodium (Chloride) 250 mls @ 250 mls/hr IV Q24H [facility] Last Admin: 04/11/18 11:31 Dose: 250 mls/hr Levothyroxine Sodium (Synthroid) 88 mcg PO TuTh@0600 [facility] Last Admin: 04/11/18 05:55 Dose: 88 mcg Levothyroxine Sodium (Levothyroxine) 75 mcg PO SuMoWeFrSa@0600 [facility] Last Admin: 04/12/18 05:55 Dose: 75 mcg Pantoprazole Sodium (Protonix) 40 mg PO 0600 [facility] Last Admin: 04/12/18 05:55 Dose: 40 mg Potassium Chloride (Klor-Con 10) 10 meq PO DAILY [facility] Last Admin: 04/11/18 10:17 Dose: 10 meq Pregabalin (Lyrica) 150 mg PO BID [facility] Last Admin: 04/11/18 20:50 Dose: 150 mg Discontinued Medications Albuterol/Ipratropium (Duoneb 3.0-0.5 Mg/3 Ml) 3 ml NEB QIDRT [facility] Last Admin: 04/10/18 07:33 Dose: 3 ml Ceftriaxone Sodium (Rocephin) Confirm Administered Dose 2 gm .ROUTE .STK-MED ONE Stop: 04/10/18 06:13 Last Admin: 04/10/18 06:40 Dose: Not Given Digoxin (Lanoxin) 125 mcg IVPUSH ONETIME ONE Stop: 04/10/18 19:05 Last Admin: 04/10/18 20:34 Dose: 125 mcg Digoxin (Lanoxin) 125 mcg IVPUSH ONETIME ONE Stop: 04/11/18 03:39 Last Admin: 04/11/18 03:54 Dose: 125 mcg Furosemide (Lasix) 40 mg PO DAILY [facility] Ceftriaxone Sodium 2 gm/ (Sodium Chloride) 100 mls @ 200 mls/hr IVPUSH ONETIME ONE Stop: 04/10/18 06:38 Last Admin: 04/10/18 06:20 Dose: 200 mls/hr Sodium Chloride (Normal Saline) 1,000 mls @ 999 mls/hr IV ASDIRECTED [facility] Last Admin: 04/10/18 06:00 Dose: 999 mls/hr Sodium Chloride (Normal Saline) Confirm Administered Dose 100 mls @ as directed .ROUTE .[facility] ONE Stop: 04/10/18 06:19 Last Admin: 04/10/18 06:40 Dose: Not Given Levofloxacin/Dextrose 500 mg/ (Premix) 100 mls @ 100 mls/hr IV ONETIME ONE Stop: 04/10/18 07:33 Last Admin: 04/10/18 07:00 Dose: 100 mls/hr Sodium Chloride (Normal Saline) 1,000 mls @ 125 mls/hr IV ASDIRECTED [facility] Last Admin: 04/10/18 07:00 Dose: 125 mls/hr Vancomycin HCl 1,000 mg/ (Sodium Chloride) 250 mls @ 167 mls/hr IV ONETIME ONE Stop: 04/10/18 08:03 Last Admin: 04/10/18 09:20 Dose: 167 mls/hr Levofloxacin/Dextrose (Levaquin In D5w 500 Mg/100 Ml) Confirm Administered Dose 100 mls @ as directed IV .[facility] ONE Stop: 04/10/18 06:52 Last Admin: 04/10/18 07:24 Dose: Not Given Azithromycin 250 mg/ Sodium (Chloride) 250 mls @ 250 mls/hr IV Q24H [facility] Last Admin: 04/10/18 15:01 Dose: Not Given Levofloxacin/Dextrose 250 mg/ (Premix) 50 mls @ 50 mls/hr IV Q24H [facility] Sodium Chloride (Normal Saline) 200 mls @ 400 mls/hr IV BOLUS ONE Stop: 04/10/18 16:49 Last Admin: 04/10/18 16:47 Dose: 400 mls/hr Ondansetron HCl (Zofran) 4 mg IV Q4H PRN PRN Reason: Nausea/Vomiting - Exam General: Alert, Cooperative Neck: Supple Lungs: Normal Respiratory Effort (She moves good air.), Crackles (Fine) Cardiovascular: Regular Rate, Irregular Rhythm. No: Murmurs Extremities: Pedal Edema (1+) Skin: Warm, Dry, Intact Psy/Mental Status: Alert, Normal Affect, Normal Mood - Problem List & Annotations (1) Renal failure (ARF), acute on chronic SNOMED Code(s): 379043848 Code(s): N17.9 - ACUTE KIDNEY FAILURE, UNSPECIFIED; N18.9 - CHRONIC KIDNEY DISEASE, UNSPECIFIED Status: Acute Current Visit: Yes (2) Palliative care status SNOMED Code(s): 132810612 Code(s): Z51.5 - ENCOUNTER FOR PALLIATIVE CARE Status: Acute Current Visit: Yes (3) Thrombocytopenia SNOMED Code(s): 346750398 Code(s): D69.6 - THROMBOCYTOPENIA, UNSPECIFIED Status: Acute Current Visit: Yes (4) Delirium SNOMED Code(s): 4471763 Code(s): R41.0 - DISORIENTATION, UNSPECIFIED Status: Acute Current Visit : Yes (5) Pneumonia SNOMED Code(s): 973369583 Code(s): J18.9 - PNEUMONIA, UNSPECIFIED ORGANISM Status: Acute Current Visit: Yes Qualifiers: Pneumonia type: due to unspecified organism Laterality: left Lung location: lower lobe of lung Qualified Code(s): J18.1 - Lobar pneumonia, unspecified organism Annotation/Comment:: IV Levaquin 500 mg in the ED today, then start oral Levaquin 500 mg qd tomorrow. (6) CHF (congestive heart failure) SNOMED Code(s): 89702973 Code(s): I50.9 - HEART FAILURE, UNSPECIFIED Status: Acute Current Visit: No Qualifiers: Heart failure chronicity: unspecified (7) Confusion SNOMED Code(s): 712049567 Code(s): R41.0 - DISORIENTATION, UNSPECIFIED Status: Acute Priority: Medium Current Visit: No - Problem List Review Problem List Initiated/Reviewed/Updated: Yes - My Orders Last 24 Hours: My Active Orders 04/11/18 09:00 Diltiazem [Cardizem CD] 120 mg PO DAILY Pantoprazole [ProTONIX] 40 mg PO 0600 Potassium Chloride [Klor-Con 10] 10 meq PO DAILY - Plan Plan:: 1. Transfer to a medical floor and DC ICU 2. Start restarting her home medications. 3. DC telemetry. Her pulse and blood pressure now stable. 4. Change IV fluids D5 half-normal 5. Up in a chair. Apparently she is a complete lift so I will not order PT/OT at this time.
[2018-04-12] MEDS: D5 1/2 NS w/ 10 mEq/L KCl 1,000 ML IV SCH (08:58)
[2018-04-12] MEDS: Diltiazem 120 MG Cap.CD PO SCH (09:00)
[2018-04-12] MEDS: Furosemide 20 MG Tab PO SCH (09:00)
[2018-04-12] MEDS: Potassium Chloride 10 MEQ Tab.ER PO SCH (09:00)
[2018-04-12] MEDS: Aspirin 81 MG Tab.Chew PO SCH (09:01)
[2018-04-12] MEDS: Citalopram 20 MG Tab PO SCH (09:01)
[2018-04-12] MEDS: Pregabalin 75 MG Cap PO SCH ×2 (09:04→20:07)
[2018-04-12] MEDS: Azithromycin 500 MG in Sodium Chloride 0.9% 250 ML IV SCH (10:51)
[2018-04-12] MEDS: ClonazePAM 1 MG Tab PO SCH (20:07)
[2018-04-13] MEDS: D5 1/2 NS w/ 10 mEq/L KCl 1,000 ML IV SCH (00:24)
[2018-04-13] MEDS: cefTRIAXone 2 GM Vial IVPUSH SCH (06:18)
[2018-04-13] MEDS: Pantoprazole 40 MG Tab.CR PO SCH (06:19)
[2018-04-13] MEDS: Levothyroxine 75 MCG Tab PO SCH (06:19)
[2018-04-13] MEDS: Albuterol/Ipratropium 3.0-0.5 MG/3 ML Neb Soln NEB SCH ×4 (07:07→20:02)
[2018-04-13] MEDS: Citalopram 20 MG Tab PO SCH (08:15)
[2018-04-13] MEDS: Pregabalin 75 MG Cap PO SCH ×2 (08:15→20:02)
[2018-04-13] MEDS: Diltiazem 120 MG Cap.CD PO SCH (08:16)
[2018-04-13] MEDS: Aspirin 81 MG Tab.Chew PO SCH (08:16)
[2018-04-13] MEDS: Potassium Chloride 10 MEQ Tab.ER PO SCH (08:17)
[2018-04-13] MEDS: Furosemide 20 MG Tab PO SCH (08:17)
--- NOTE | 2018-04-13 08:40 | PCM.PN ---
- General Info Date of Service: 04/13/18 Admission Dx/Problem (Free Text): Patient states she's feeling better. Still has a little cough and shortness of breath. She denies fevers, chills and has leg swelling. - Patient Data Vitals - Most Recent: Last Vital Signs Temp 97.9 F 04/13/18 04:00 Pulse 82 04/13/18 08:16 Resp 18 04/13/18 04:00 BP 134/66 04/13/18 08:16 Pulse Ox 97 04/13/18 04:00 Weight - Most Recent: 175 lb 8 oz I&O - Last 24 Hours: Intake & Output 04/12/18 04/13/18 04/13/18 22:59 06:59 14:59 Intake Total 1192 599 Balance 1192 599 Lab Results Last 24 Hours: Laboratory Results - last 24 hr 04/13/18 Range/Units 06:25 WBC 6.4 (4.5-12.0) X10-3/uL RBC 3.33 (3.23-5.20) x10(6)uL Hgb 10.2 L (11.5-15.5) g/dL Hct 31.2 (30.0-51.3) % MCV 93.5 (80-96) fL MCH 30.5 (27.7-33.6) pg MCHC 32.6 (32.2-35.4) g/dL RDW 16.3 H (11.5-15.5) % Plt Count 56 L (125-369) X10(3)uL MPV 10.1 (7.4-10.4) fL Neut % (Auto) 63.6 (46-82) % Lymph % (Auto) 24.7 (13-37) % [place] % (Auto) 8.0 (4-12) % Eos % (Auto) 3 (1.0-5.0) % Baso % (Auto) 1 (0-2) % Neut # (Auto) 4.1 (1.6-8.3) # Lymph # (Auto) 1.6 (0.6-5.0) # [place] # (Auto) 0.5 (0.0-1.3) # Eos # (Auto) 0.2 (0.0-0.8) # Baso # (Auto) 0.0 (0.0-0.2) # Gerald Results Last 24 Hours: Microbiology 04/10/18 05:25 Aerobic Blood Culture - Preliminary Blood NO GROWTH AFTER 3 DAYS Anaerobic Blood Culture - Final 04/10/18 05:20 Aerobic Blood Culture - Preliminary Blood NO GROWTH AFTER 3 DAYS Anaerobic Blood Culture - Preliminary NO GROWTH AFTER 3 DAYS Med Orders - Current: Current Medications Albuterol/Ipratropium (Duoneb 3.0-0.5 Mg/3 Ml) 3 ml NEB QIDRT [facility] Last Admin: 04/13/18 07:07 Dose: 3 ml Aspirin (Aspirin) 81 mg PO DAILY [facility] Last Admin: 04/13/18 08:16 Dose: 81 mg Ceftriaxone Sodium (Rocephin) 2 gm IVPUSH Q24H [facility] Last Admin: 04/13/18 06:18 Dose: 2 gm Citalopram Hydrobromide (Celexa) 20 mg PO DAILY [facility] Last Admin: 04/13/18 08:15 Dose: 20 mg Clonazepam (Klonopin) 1 mg PO BEDTIME [facility] Last Admin: 04/12/18 20:07 Dose: 1 mg Diltiazem HCl (Cardizem Cd) 120 mg PO DAILY [facility] Last Admin: 04/13/18 08:16 Dose: 120 mg Furosemide (Lasix) 20 mg PO DAILY [facility] Last Admin: 04/13/18 08:17 Dose: 20 mg Azithromycin 500 mg/ Sodium (Chloride) 250 mls @ 250 mls/hr IV Q24H [facility] Last Admin: 04/12/18 10:51 Dose: 250 mls/hr Potassium Chloride/Dextrose/Sod Cl (D5 1/2 Ns W/ 10 Meq/L Kcl) 1,000 mls @ 70 mls/hr IV Q14H [facility] Last Admin: 04/13/18 00:24 Dose: 70 mls/hr Levothyroxine Sodium (Synthroid) 88 mcg PO TuTh@0600 [facility] Last Admin: 04/11/18 05:55 Dose: 88 mcg Levothyroxine Sodium (Levothyroxine) 75 mcg PO SuMoWeFrSa@0600 [facility] Last Admin: 04/13/18 06:19 Dose: 75 mcg Pantoprazole Sodium (Protonix) 40 mg PO 0600 [facility] Last Admin: 04/13/18 06:19 Dose: 40 mg Potassium Chloride (Klor-Con 10) 10 meq PO DAILY [facility] Last Admin: 04/13/18 08:17 Dose: 10 meq Pregabalin (Lyrica) 150 mg PO BID [facility] Last Admin: 04/13/18 08:15 Dose: 150 mg Discontinued Medications Albuterol/Ipratropium (Duoneb 3.0-0.5 Mg/3 Ml) 3 ml NEB QIDRT [facility] Last Admin: 04/10/18 07:33 Dose: 3 ml Ceftriaxone Sodium (Rocephin) Confirm Administered Dose 2 gm .ROUTE .STK-MED ONE Stop: 04/10/18 06:13 Last Admin: 04/10/18 06:40 Dose: Not Given Digoxin (Lanoxin) 125 mcg IVPUSH ONETIME ONE Stop: 04/10/18 19:05 Last Admin: 04/10/18 20:34 Dose: 125 mcg Digoxin (Lanoxin) 125 mcg IVPUSH ONETIME ONE Stop: 04/11/18 03:39 Last Admin: 04/11/18 03:54 Dose: 125 mcg Furosemide (Lasix) 40 mg PO DAILY [facility] Ceftriaxone Sodium 2 gm/ (Sodium Chloride) 100 mls @ 200 mls/hr IVPUSH ONETIME ONE Stop: 04/10/18 06:38 Last Admin: 04/10/18 06:20 Dose: 200 mls/hr Sodium Chloride (Normal Saline) 1,000 mls @ 999 mls/hr IV ASDIRECTED [facility] Last Admin: 04/10/18 06:00 Dose: 999 mls/hr Sodium Chloride (Normal Saline) Confirm Administered Dose 100 mls @ as directed .ROUTE .STK-MED ONE Stop: 04/10/18 06:19 Last Admin: 04/10/18 06:40 Dose: Not Given Levofloxacin/Dextrose 500 mg/ (Premix) 100 mls @ 100 mls/hr IV ONETIME ONE Stop: 04/10/18 07:33 Last Admin: 04/10/18 07:00 Dose: 100 mls/hr Sodium Chloride (Normal Saline) 1,000 mls @ 125 mls/hr IV ASDIRECTED [facility] Last Admin: 04/10/18 07:00 Dose: 125 mls/hr Vancomycin HCl 1,000 mg/ (Sodium Chloride) 250 mls @ 167 mls/hr IV ONETIME ONE Stop: 04/10/18 08:03 Last Admin: 04/10/18 09:20 Dose: 167 mls/hr Levofloxacin/Dextrose (Levaquin In D5w 500 Mg/100 Ml) Confirm Administered Dose 100 mls @ as directed IV .STK-MED ONE Stop: 04/10/18 06:52 Last Admin: 04/10/18 07:24 Dose: Not Given Azithromycin 250 mg/ Sodium (Chloride) 250 mls @ 250 mls/hr IV Q24H [facility] Last Admin: 04/10/18 15:01 Dose: Not Given Levofloxacin/Dextrose 250 mg/ (Premix) 50 mls @ 50 mls/hr IV Q24H [facility] Potassium Chloride/Sodium Chloride (Normal Saline With 20 Meq Kcl) 1,000 mls @ 75 mls/hr IV Q13H [facility] Last Admin: 04/12/18 03:22 Dose: Not Given Sodium Chloride (Normal Saline) 200 mls @ 400 mls/hr IV BOLUS ONE Stop: 04/10/18 16:49 Last Admin: 04/10/18 16:47 Dose: 400 mls/hr Ondansetron HCl (Zofran) 4 mg IV Q4H PRN PRN Reason: Nausea/Vomiting - Exam General: Alert, Oriented, Cooperative Neck: Supple Lungs: Normal Respiratory Effort, Crackles (Very fine. Moves good air.) Cardiovascular: Regular Rate, Regular Rhythm, No Murmurs Extremities: No Pedal Edema Skin: Warm, Dry, Intact Psy/Mental Status: Normal Affect, Normal Mood - Problem List & Annotations (1) Renal failure (ARF), acute on chronic SNOMED Code(s): 469514607 Code(s): N17.9 - ACUTE KIDNEY FAILURE, UNSPECIFIED; N18.9 - CHRONIC KIDNEY DISEASE, UNSPECIFIED Status: Acute Current Visit: Yes (2) Palliative care status SNOMED Code(s): 937685031 Code(s): Z51.5 - ENCOUNTER FOR PALLIATIVE CARE Status: Acute Current Visit: Yes (3) Thrombocytopenia SNOMED Code(s): 738032086 Code(s): D69.6 - THROMBOCYTOPENIA, UNSPECIFIED Status: Acute Current Visit: Yes (4) Delirium SNOMED Code(s): 0851108 Code(s): R41.0 - DISORIENTATION, UNSPECIFIED Status: Acute Current Visit : Yes (5) Pneumonia SNOMED Code(s): 789560092 Code(s): J18.9 - PNEUMONIA, UNSPECIFIED ORGANISM Status: Acute Current Visit: Yes Qualifiers: Pneumonia type: due to unspecified organism Laterality: left Lung location: lower lobe of lung Qualified Code(s): J18.1 - Lobar pneumonia, unspecified organism Annotation/Comment:: IV Levaquin 500 mg in the ED today, then start oral Levaquin 500 mg qd tomorrow. (6) CHF (congestive heart failure) SNOMED Code(s): 99013322 Code(s): I50.9 - HEART FAILURE, UNSPECIFIED Status: Acute Current Visit: No Qualifiers: Heart failure chronicity: unspecified (7) Confusion SNOMED Code(s): 189591186 Code(s): R41.0 - DISORIENTATION, UNSPECIFIED Status: Acute Priority: Medium Current Visit: No - Problem List Review Problem List Initiated/Reviewed/Updated: Yes - My Orders Last 24 Hours: My Active Orders 04/12/18 08:30 D5 1/2 NS w/ 10 mEq/L KCl 1,000 ml IV Q14H 04/12/18 09:00 Furosemide [Lasix] 20 mg PO DAILY - Plan Plan:: 1. DC IV fluids and saline lock IV. 2. DC IV antibiotics and start Levaquin by mouth once a day. 3. Increase her Lasix to her normal home dose.
[2018-04-13] MEDS ORDERED: Levofloxacin 750 MG Tab PO SCH (09:00)
[2018-04-13] MEDS ORDERED: Furosemide 20 MG Tab PO ONE (09:15)
[2018-04-13] MEDS: ClonazePAM 1 MG Tab PO SCH (20:02)
[2018-04-14] MEDS: Levothyroxine 75 MCG Tab PO SCH (05:20)
[2018-04-14] MEDS: Pantoprazole 40 MG Tab.CR PO SCH (05:20)
[2018-04-14] MEDS: Albuterol/Ipratropium 3.0-0.5 MG/3 ML Neb Soln NEB SCH ×2 (07:10→11:08)
--- NOTE | 2018-04-14 08:17 | PCM.PN ---
- General Info Date of Service: 04/14/18 Admission Dx/Problem (Free Text): Patient states she even feels better today. With less shortness of breath. She says she has a cough but she always has that. She denies fevers, chills or leg swelling. - Patient Data Vitals - Most Recent: Last Vital Signs Temp 97.4 F 04/14/18 00:00 Pulse 94 04/14/18 00:00 Resp 16 04/14/18 00:00 BP 124/46 L 04/14/18 00:00 Pulse Ox 92 L 04/14/18 00:00 Weight - Most Recent: 175 lb 8 oz I&O - Last 24 Hours: Intake & Output 04/13/18 04/14/18 04/14/18 22:59 06:59 14:59 Intake Total 480 Balance 480 Gerald Results Last 24 Hours: Microbiology 04/10/18 05:25 Aerobic Blood Culture - Preliminary Blood NO GROWTH AFTER 4 DAYS Anaerobic Blood Culture - Final 04/10/18 05:20 Aerobic Blood Culture - Preliminary Blood NO GROWTH AFTER 4 DAYS Anaerobic Blood Culture - Preliminary NO GROWTH AFTER 4 DAYS Med Orders - Current: Current Medications Albuterol/Ipratropium (Duoneb 3.0-0.5 Mg/3 Ml) 3 ml NEB QIDRT [facility] Last Admin: 04/14/18 07:10 Dose: 3 ml Aspirin (Aspirin) 81 mg PO DAILY [facility] Last Admin: 04/13/18 08:16 Dose: 81 mg Citalopram Hydrobromide (Celexa) 20 mg PO DAILY [facility] Last Admin: 04/13/18 08:15 Dose: 20 mg Clonazepam (Klonopin) 1 mg PO BEDTIME [facility] Last Admin: 04/13/18 20:02 Dose: 1 mg Diltiazem HCl (Cardizem Cd) 120 mg PO DAILY [facility] Last Admin: 04/13/18 08:16 Dose: 120 mg Furosemide (Lasix) 40 mg PO DAILY [facility] Levofloxacin (Levaquin) 750 mg PO Q48H [facility] Last Admin: 04/13/18 11:23 Dose: 750 mg Levothyroxine Sodium (Synthroid) 88 mcg PO TuTh@0600 [facility] Last Admin: 04/11/18 05:55 Dose: 88 mcg Levothyroxine Sodium (Levothyroxine) 75 mcg PO SuMoWeFrSa@0600 [facility] Last Admin: 04/14/18 05:20 Dose: 75 mcg Pantoprazole Sodium (Protonix) 40 mg PO 0600 [facility] Last Admin: 04/14/18 05:20 Dose: 40 mg Potassium Chloride (Klor-Con 10) 10 meq PO DAILY [facility] Last Admin: 04/13/18 08:17 Dose: 10 meq Pregabalin (Lyrica) 150 mg PO BID [facility] Last Admin: 04/13/18 20:02 Dose: 150 mg Discontinued Medications Albuterol/Ipratropium (Duoneb 3.0-0.5 Mg/3 Ml) 3 ml NEB QIDRT [facility] Last Admin: 04/10/18 07:33 Dose: 3 ml Ceftriaxone Sodium (Rocephin) Confirm Administered Dose 2 gm .ROUTE .STK-MED ONE Stop: 04/10/18 06:13 Last Admin: 04/10/18 06:40 Dose: Not Given Ceftriaxone Sodium (Rocephin) 2 gm IVPUSH Q24H [facility] Last Admin: 04/13/18 06:18 Dose: 2 gm Digoxin (Lanoxin) 125 mcg IVPUSH ONETIME ONE Stop: 04/10/18 19:05 Last Admin: 04/10/18 20:34 Dose: 125 mcg Digoxin (Lanoxin) 125 mcg IVPUSH ONETIME ONE Stop: 04/11/18 03:39 Last Admin: 04/11/18 03:54 Dose: 125 mcg Furosemide (Lasix) 40 mg PO DAILY [facility] Furosemide (Lasix) 20 mg PO DAILY [facility] Last Admin: 04/13/18 08:17 Dose: 20 mg Furosemide (Lasix) 20 mg PO ONETIME ONE Stop: 04/13/18 09:16 Last Admin: 04/13/18 11:23 Dose: 20 mg Ceftriaxone Sodium 2 gm/ (Sodium Chloride) 100 mls @ 200 mls/hr IVPUSH ONETIME ONE Stop: 04/10/18 06:38 Last Admin: 04/10/18 06:20 Dose: 200 mls/hr Sodium Chloride (Normal Saline) 1,000 mls @ 999 mls/hr IV ASDIRECTED [facility] Last Admin: 04/10/18 06:00 Dose: 999 mls/hr Sodium Chloride (Normal Saline) Confirm Administered Dose 100 mls @ as directed .ROUTE .STK-MED ONE Stop: 04/10/18 06:19 Last Admin: 04/10/18 06:40 Dose: Not Given Levofloxacin/Dextrose 500 mg/ (Premix) 100 mls @ 100 mls/hr IV ONETIME ONE Stop: 04/10/18 07:33 Last Admin: 04/10/18 07:00 Dose: 100 mls/hr Sodium Chloride (Normal Saline) 1,000 mls @ 125 mls/hr IV ASDIRECTED [facility] Last Admin: 04/10/18 07:00 Dose: 125 mls/hr Vancomycin HCl 1,000 mg/ (Sodium Chloride) 250 mls @ 167 mls/hr IV ONETIME ONE Stop: 04/10/18 08:03 Last Admin: 04/10/18 09:20 Dose: 167 mls/hr Levofloxacin/Dextrose (Levaquin In D5w 500 Mg/100 Ml) Confirm Administered Dose 100 mls @ as directed IV .STK-MED ONE Stop: 04/10/18 06:52 Last Admin: 04/10/18 07:24 Dose: Not Given Azithromycin 250 mg/ Sodium (Chloride) 250 mls @ 250 mls/hr IV Q24H [facility] Last Admin: 04/10/18 15:01 Dose: Not Given Levofloxacin/Dextrose 250 mg/ (Premix) 50 mls @ 50 mls/hr IV Q24H [facility] Potassium Chloride/Sodium Chloride (Normal Saline With 20 Meq Kcl) 1,000 mls @ 75 mls/hr IV Q13H [facility] Last Admin: 04/12/18 03:22 Dose: Not Given Azithromycin 500 mg/ Sodium (Chloride) 250 mls @ 250 mls/hr IV Q24H [facility] Last Admin: 04/12/18 10:51 Dose: 250 mls/hr Sodium Chloride (Normal Saline) 200 mls @ 400 mls/hr IV BOLUS ONE Stop: 04/10/18 16:49 Last Admin: 04/10/18 16:47 Dose: 400 mls/hr Potassium Chloride/Dextrose/Sod Cl (D5 1/2 Ns W/ 10 Meq/L Kcl) 1,000 mls @ 70 mls/hr IV Q14H [facility] Last Admin: 04/13/18 00:24 Dose: 70 mls/hr Ondansetron HCl (Zofran) 4 mg IV Q4H PRN PRN Reason: Nausea/Vomiting - Exam General: Alert, Oriented, Cooperative Lungs: Clear to Auscultation, Normal Respiratory Effort Cardiovascular: Regular Rate, No Murmurs Extremities: Pedal Edema (1+) Psy/Mental Status: Alert, Normal Affect, Normal Mood - Problem List & Annotations (1) Renal failure (ARF), acute on chronic SNOMED Code(s): 547252888 Code(s): N17.9 - ACUTE KIDNEY FAILURE, UNSPECIFIED; N18.9 - CHRONIC KIDNEY DISEASE, UNSPECIFIED Status: Acute Current Visit: Yes (2) Palliative care status SNOMED Code(s): 876516239 Code(s): Z51.5 - ENCOUNTER FOR PALLIATIVE CARE Status: Acute Current Visit: Yes (3) Thrombocytopenia SNOMED Code(s): 586061377 Code(s): D69.6 - THROMBOCYTOPENIA, UNSPECIFIED Status: Acute Current Visit: Yes (4) Delirium SNOMED Code(s): 9097013 Code(s): R41.0 - DISORIENTATION, UNSPECIFIED Status: Acute Current Visit : Yes (5) Pneumonia SNOMED Code(s): 817199362 Code(s): J18.9 - PNEUMONIA, UNSPECIFIED ORGANISM Status: Acute Current Visit: Yes Qualifiers: Pneumonia type: due to unspecified organism Laterality: left Lung location: lower lobe of lung Qualified Code(s): J18.1 - Lobar pneumonia, unspecified organism Annotation/Comment:: IV Levaquin 500 mg in the ED today, then start oral Levaquin 500 mg qd tomorrow. (6) CHF (congestive heart failure) SNOMED Code(s): 83801091 Code(s): I50.9 - HEART FAILURE, UNSPECIFIED Status: Acute Current Visit: No Qualifiers: Heart failure chronicity: unspecified (7) Confusion SNOMED Code(s): 368013803 Code(s): R41.0 - DISORIENTATION, UNSPECIFIED Status: Acute Priority: Medium Current Visit: No - Problem List Review Problem List Initiated/Reviewed/Updated: Yes - My Orders Last 24 Hours: My Active Orders 04/13/18 08:43 Convert IV to [place] Lock [OM.PC] Routine 04/13/18 09:00 levoFLOXacin [Levaquin] 750 mg PO Q48H 04/14/18 09:00 Furosemide [Lasix] 40 mg PO DAILY - Plan Plan:: 1. Transfer back to correction on regular medications and on Levaquin 750 mg every 24 hours for 3 days.
--- NOTE | 2018-04-14 08:22 | PCM.DCSUM1 ---
Discharge Summary - Hospital Course Free Text/Narrative:: Hospital course-patient was placed in ICU. Her blood pressure was very low and Dr. Marshall talk to the family about pressors. They did not want This because she is a DNR. So she was treated with Rocephin, Zithromax, Vanco IV. She is given IV fluids nebulizer treatments. Chest x-ray showed pneumonia. The next couple days she actually improved. White count is very high in the started to come down. We backed off of antibiotics and is went to Levaquin once a day. White count went to normal. Patient became more alert and blood pressure became stable. Patient was transferred the floor and did well one on by mouth Levaquin and withdrew everything but her regular medications. Patient was alert and talking and felt great so we transfer back to half-way. Brief History: Ms Gutierrez is an 88-year-old female from [facility] , with marked lethargy,disorientation and fever. Currently unclear how long she was sick for,but the nurse found at this way earlier this night with a temp until 102.5 and obtunded. This also gargling and cough with what appeared to be respiratory distress. Chest similar presentation may was diagnosed with pneumonia at that visit. She also has a history of unspeficifed encephlaopapthy, hyponatremia, rheumatoid arthritis, and myelodysplastic syndrome essentially previously stable Diagnosis: Stroke: No - Discharge Data Discharge Date: 04/14/18 Discharge Disposition: DC/Tfer to [place] [id number] Condition: Fair - Discharge Diagnosis/Problem(s) (1) Renal failure (ARF), acute on chronic SNOMED Code(s): 097092319 ICD Code: N17.9 - ACUTE KIDNEY FAILURE, UNSPECIFIED; N18.9 - CHRONIC KIDNEY DISEASE, UNSPECIFIED Status: Acute Current Visit: Yes (2) Palliative care status SNOMED Code(s): 082774268 ICD Code: Z51.5 - ENCOUNTER FOR PALLIATIVE CARE Status: Acute Current Visit: Yes (3) Thrombocytopenia SNOMED Code(s): 542759854 ICD Code: D69.6 - THROMBOCYTOPENIA, UNSPECIFIED Status: Acute Current Visit: Yes (4) Delirium SNOMED Code(s): 4383193 ICD Code: R41.0 - DISORIENTATION, UNSPECIFIED Status: Acute Current Visit : Yes (5) Pneumonia SNOMED Code(s): 422066563 ICD Code: J18.9 - PNEUMONIA, UNSPECIFIED ORGANISM Status: Acute Current Visit: Yes Problem Details: IV Levaquin 500 mg in the ED today, then start oral Levaquin 500 mg qd tomorrow. Qualifiers: Pneumonia type: due to unspecified organism Laterality: left Lung location: lower lobe of lung Qualified Code(s): J18.1 - Lobar pneumonia, unspecified organism (6) CHF (congestive heart failure) SNOMED Code(s): 88461132 ICD Code: I50.9 - HEART FAILURE, UNSPECIFIED Status: Acute Current Visit : No Qualifiers: Heart failure chronicity: unspecified (7) Confusion SNOMED Code(s): 996846868 ICD Code: R41.0 - DISORIENTATION, UNSPECIFIED Status: Acute Priority: Medium Current Visit: No - Patient Instructions Diet: Low Sodium Activity: As Tolerated Driving: Do Not Drive Showering/Bathing: May Shower Notify Provider of: Fever, Increased Pain Other/Special Instructions: 1. Transfer back to [facility]. 2. To follow by Dr. Jolly and his regular visit. - Discharge Plan Prescriptions/Med Rec: levoFLOXacin [Levaquin] 750 mg PO Q48H #3 tablet Home Medications: Home Meds Levothyroxine Sodium [Synthroid] 75 mcg PO SUMOWEFRSA 06/24/15 [History] Levothyroxine [Synthroid] 88 mcg PO TUTH 06/24/15 [History] Magnesium Hydroxide [Milk of Magnesia] 30 ml PO DAILY 06/24/15 [History] Acetaminophen [Tylenol] 650 mg PO Q4H PRN 08/19/17 [History] Acetaminophen/HYDROcodone [[place] 325-5 MG] 1 tab PO QID 08/19/17 [History] Albuterol/Ipratropium [DuoNeb 3.0-0.5 MG/3 ML] 3 ml NEB QID PRN 08/19/17 [ History] Bisacodyl [Dulcolax] 10 mg RC Q3D PRN 08/19/17 [History] Capsaicin 1 applic TOP TID 08/19/17 [History] Citalopram [Citalopram HBr] 20 mg PO DAILY 08/19/17 [History] Diltiazem HCl [Diltiazem 24Hr ER] 120 mg PO DAILY 08/19/17 [History] Fluocinonide/Emollient [Lidex-E 0.05% Crm] 1 applic TOP SUSA@08/19/17 [ History] Furosemide [Lasix] 40 mg PO DAILY 08/19/17 [History] Multivitamin [Daily Multiple Vitamin] 1 tab PO DAILY 08/19/17 [History] Nystatin [Nystatin Crm] 1 applic TOP BID PRN 08/19/17 [History] Pantoprazole [ProTONIX] 40 mg PO DAILY 08/19/17 [History] Pregabalin [Lyrica] 150 mg PO BID 08/19/17 [History] Sennosides/Docusate Sodium [Senna-S Tablet] 1 each PO DAILY 08/19/17 [History] Sennosides/Docusate Sodium [Senna-S Tablet] 2 tab PO BEDTIME 08/19/17 [History] clonazePAM [Klonopin] 1 mg PO BEDTIME 08/19/17 [History] guaiFENesin [Robitussin] 200 mg PO Q4H PRN 08/19/17 [History] Aspirin 81 mg PO DAILY tab.chew 08/21/17 [Rx] Menthol/Selenium Sulfide [Selsun Blue 1% Shampoo] 1 applic TOP 04/10/18 [ History] Mineral Oil 1 applic TOP WE@199904/10/18 [History] Potassium Chloride [Klor-Con 10] 10 meq PO DAILY 04/10/18 [History] Triamcinolone Acetonide [Triamcinolone Acetonide 0.1% Crm] 1 applic TOP SUSA@04/10/18 [History] levoFLOXacin [Levaquin] 750 mg PO Q48H #3 tablet 04/14/18 [Rx] Forms: ED Department Discharge Referrals: Richardson Jolly MD [Primary Care Provider] - - Discharge Summary/Plan Comment DC Time >30 min.: No - Patient Data Vitals - Most Recent: Last Vital Signs Temp 97.4 F 04/14/18 00:00 Pulse 94 04/14/18 00:00 Resp 16 04/14/18 00:00 BP 124/46 L 04/14/18 00:00 Pulse Ox 92 L 04/14/18 00:00 Weight - Most Recent: 175 lb 8 oz I&O - Last 24 hours: Intake & Output 04/13/18 04/14/18 04/14/18 22:59 06:59 14:59 Intake Total 480 Balance 480 ZOILA Results - Last 24 hrs: Microbiology 04/10/18 05:25 Aerobic Blood Culture - Preliminary Blood NO GROWTH AFTER 4 DAYS Anaerobic Blood Culture - Final 04/10/18 05:20 Aerobic Blood Culture - Preliminary Blood NO GROWTH AFTER 4 DAYS Anaerobic Blood Culture - Preliminary NO GROWTH AFTER 4 DAYS Med Orders - Current: Current Medications Albuterol/Ipratropium (Duoneb 3.0-0.5 Mg/3 Ml) 3 ml NEB QIDRT [facility] Last Admin: 04/14/18 07:10 Dose: 3 ml Aspirin (Aspirin) 81 mg PO DAILY [facility] Last Admin: 04/13/18 08:16 Dose: 81 mg Citalopram Hydrobromide (Celexa) 20 mg PO DAILY [facility] Last Admin: 04/13/18 08:15 Dose: 20 mg Clonazepam (Klonopin) 1 mg PO BEDTIME [facility] Last Admin: 04/13/18 20:02 Dose: 1 mg Diltiazem HCl (Cardizem Cd) 120 mg PO DAILY [facility] Last Admin: 04/13/18 08:16 Dose: 120 mg Furosemide (Lasix) 40 mg PO DAILY [facility] Levofloxacin (Levaquin) 750 mg PO Q48H [facility] Last Admin: 04/13/18 11:23 Dose: 750 mg Levothyroxine Sodium (Synthroid) 88 mcg PO TuTh@0600 [facility] Last Admin: 04/11/18 05:55 Dose: 88 mcg Levothyroxine Sodium (Levothyroxine) 75 mcg PO SuMoWeFrSa@0600 [facility] Last Admin: 04/14/18 05:20 Dose: 75 mcg Pantoprazole Sodium (Protonix) 40 mg PO 0600 [facility] Last Admin: 04/14/18 05:20 Dose: 40 mg Potassium Chloride (Klor-Con 10) 10 meq PO DAILY [facility] Last Admin: 04/13/18 08:17 Dose: 10 meq Pregabalin (Lyrica) 150 mg PO BID [facility] Last Admin: 04/13/18 20:02 Dose: 150 mg Discontinued Medications Albuterol/Ipratropium (Duoneb 3.0-0.5 Mg/3 Ml) 3 ml NEB QIDRT [facility] Last Admin: 04/10/18 07:33 Dose: 3 ml Ceftriaxone Sodium (Rocephin) Confirm Administered Dose 2 gm .ROUTE .STK-MED ONE Stop: 04/10/18 06:13 Last Admin: 04/10/18 06:40 Dose: Not Given Ceftriaxone Sodium (Rocephin) 2 gm IVPUSH Q24H [facility] Last Admin: 04/13/18 06:18 Dose: 2 gm Digoxin (Lanoxin) 125 mcg IVPUSH ONETIME ONE Stop: 04/10/18 19:05 Last Admin: 04/10/18 20:34 Dose: 125 mcg Digoxin (Lanoxin) 125 mcg IVPUSH ONETIME ONE Stop: 04/11/18 03:39 Last Admin: 04/11/18 03:54 Dose: 125 mcg Furosemide (Lasix) 40 mg PO DAILY [facility] Furosemide (Lasix) 20 mg PO DAILY [facility] Last Admin: 04/13/18 08:17 Dose: 20 mg Furosemide (Lasix) 20 mg PO ONETIME ONE Stop: 04/13/18 09:16 Last Admin: 04/13/18 11:23 Dose: 20 mg Ceftriaxone Sodium 2 gm/ (Sodium Chloride) 100 mls @ 200 mls/hr IVPUSH ONETIME ONE Stop: 04/10/18 06:38 Last Admin: 04/10/18 06:20 Dose: 200 mls/hr Sodium Chloride (Normal Saline) 1,000 mls @ 999 mls/hr IV ASDIRECTED [facility] Last Admin: 04/10/18 06:00 Dose: 999 mls/hr Sodium Chloride (Normal Saline) Confirm Administered Dose 100 mls @ as directed .ROUTE .[facility] ONE Stop: 04/10/18 06:19 Last Admin: 04/10/18 06:40 Dose: Not Given Levofloxacin/Dextrose 500 mg/ (Premix) 100 mls @ 100 mls/hr IV ONETIME ONE Stop: 04/10/18 07:33 Last Admin: 04/10/18 07:00 Dose: 100 mls/hr Sodium Chloride (Normal Saline) 1,000 mls @ 125 mls/hr IV ASDIRECTED [facility] Last Admin: 04/10/18 07:00 Dose: 125 mls/hr Vancomycin HCl 1,000 mg/ (Sodium Chloride) 250 mls @ 167 mls/hr IV ONETIME ONE Stop: 04/10/18 08:03 Last Admin: 04/10/18 09:20 Dose: 167 mls/hr Levofloxacin/Dextrose (Levaquin In D5w 500 Mg/100 Ml) Confirm Administered Dose 100 mls @ as directed IV .STK-MED ONE Stop: 04/10/18 06:52 Last Admin: 04/10/18 07:24 Dose: Not Given Azithromycin 250 mg/ Sodium (Chloride) 250 mls @ 250 mls/hr IV Q24H [facility] Last Admin: 04/10/18 15:01 Dose: Not Given Levofloxacin/Dextrose 250 mg/ (Premix) 50 mls @ 50 mls/hr IV Q24H [facility] Potassium Chloride/Sodium Chloride (Normal Saline With 20 Meq Kcl) 1,000 mls @ 75 mls/hr IV Q13H [facility] Last Admin: 04/12/18 03:22 Dose: Not Given Azithromycin 500 mg/ Sodium (Chloride) 250 mls @ 250 mls/hr IV Q24H [facility] Last Admin: 04/12/18 10:51 Dose: 250 mls/hr Sodium Chloride (Normal Saline) 200 mls @ 400 mls/hr IV BOLUS ONE Stop: 04/10/18 16:49 Last Admin: 04/10/18 16:47 Dose: 400 mls/hr Potassium Chloride/Dextrose/Sod Cl (D5 1/2 Ns W/ 10 Meq/L Kcl) 1,000 mls @ 70 mls/hr IV Q14H [facility] Last Admin: 04/13/18 00:24 Dose: 70 mls/hr Ondansetron HCl (Zofran) 4 mg IV Q4H PRN PRN Reason: Nausea/Vomiting
[2018-04-14] MEDS: Pregabalin 75 MG Cap PO SCH (08:58)
[2018-04-14] MEDS: Diltiazem 120 MG Cap.CD PO SCH (08:59)
[2018-04-14] MEDS: Citalopram 20 MG Tab PO SCH (08:59)
[2018-04-14] MEDS: Aspirin 81 MG Tab.Chew PO SCH (08:59)
[2018-04-14] MEDS: Potassium Chloride 10 MEQ Tab.ER PO SCH (09:00)
[2018-04-14] MEDS ORDERED: Furosemide 40 MG Tab PO SCH (09:00)
[2018-04-14 09:01] VITALS: BP 125/65
[2018-04-15] MEDS ORDERED: SELENIUM SULFIDE TOP SCH (08:15)
[2018-04-15] MEDS ORDERED: MENTHOL TOP SCH (08:15)
--- NOTE | 2018-04-15 12:05 | CR ---
INDICATION: Fever, crackles. CHEST: AP view of the chest was obtained 04/10/2018 and compared with 2017 and 08/19/2017, again revealing bibasilar pleural parenchymal changes, much more severe on the left than on the right. Findings may be on the basis of recurrent pneumonia, such as aspiration pneumonia and/or fibrosis. Overlying EKG leads are noted. The heart appears slightly enlarged, emphasized by poor inspiration. Evidence of previous resection of humeral head noted on the left. Deformity noted at the right glenohumeral joint. IMPRESSION: 1. Bilateral pneumonia and pleuritis is suggested. Findings should be correlated clinically, however, as at least a portion of these pleural parenchymal changes may be on the basis of fibrosis. 2. ASHD with cardiomegaly and aortic arch calcifications. MTDD
== END 2018-04-14 11:00 | DRG 871 ==
LOC: FB.ED 04:53 → FB.ICU 06:34 → FB.MS 04-12 08:30
PROVIDERS: ADMIT Family Medicine; ATTEND Family Medicine
DX: A41.9 Sepsis, unspecified organism (principal); J18.1 Lobar pneumonia, unspecified organism; R65.21 Severe sepsis with septic shock; G93.40 Encephalopathy, unspecified; N17.9 Acute kidney failure, unspecified; D46.9 Myelodysplastic syndrome, unspecified; Z51.5 Encounter for palliative care; Z66 Do not resuscitate; R41.0 Disorientation, unspecified; I50.9 Heart failure, unspecified; R50.9 Fever, unspecified; R53.83 Other fatigue; D64.9 Anemia, unspecified; M06.9 Rheumatoid arthritis, unspecified; Z91.81 History of falling; I48.91 Unspecified atrial fibrillation; E03.9 Hypothyroidism, unspecified; N18.9 Chronic kidney disease, unspecified; G89.29 Other chronic pain; D69.6 Thrombocytopenia, unspecified; F41.9 Anxiety disorder, unspecified; H54.7 Unspecified visual loss; Z88.6 Allergy status to analgesic agent; Z88.5 Allergy status to narcotic agent; Z91.018 Allergy to other foods; Z88.0 Allergy status to penicillin; Z88.8 Allergy status to other drugs, medicaments and biological substances; Z79.82 Long term (current) use of aspirin; Z91.048 Other nonmedicinal substance allergy status
CPT/HCPCS: 36415; 51703; 71045; 80053; 81001; 83880; 85025; 86140; 87040; 93005; 94640; 96361; 96365; 96375; 99285; A9270-GY; J0456; J0696; J1160; J1956; J3370; J3480; J7030; J7050; J7620-GY

== ENCOUNTER 2018-10-26 20:00 | Observation (INO) | payer MEDICARE ==
--- NOTE | 2018-10-26 20:22 | EDM.PDOC ---
ED HPI GENERAL MEDICAL PROBLEM - General Chief Complaint: Fever Stated Complaint: DIFFICULTY BREATHING Time Seen by Provider: 10/26/18 20:00 Source of Information: Reports: Patient, Family History Limitations: Reports: Altered Mental Status, Physical Impairment - History of Present Illness INITIAL COMMENTS - FREE TEXT/NARRATIVE: 88 y.o.w.f was transferred from Hospice to the ED for SOB. Her son wanted to take her out of hospice, did not jimy the papers, however. Pt arrived in the ed in severe resp distress, a fib, moaning. Son arrived stating he wants "everything done but intubation and chest compressions". Pt was in A fib with RVR, BP was fluctuating. BP 94/80 RR 30 Pulse ox 75 on 15 liter O2 NRM. Temp 37.8 pulse 102 Onset Date: 08/29/18 Onset Time: 08:00 Duration: Week(s):, Getting Worse, Intermittent Location: Reports: Generalized Quality: Reports: Same as Previous Episode Severity: Severe Improves with: Reports: None Worsens with: Reports: None Context: Reports: Other Associated Symptoms: Reports: Confusion, Diaphoresis, Fever/Chills, Loss of Appetite, Shortness of Breath - Related Data Allergies Allergy/AdvReac Type Severity Reaction Status Date / Time codeine Allergy unknown Verified 10/26/18 20:14 Corticosteroids Allergy unknown Verified 10/26/18 20:14 (Glucocorticoids) cortisone Allergy unknown Verified 10/26/18 20:14 loperamide Allergy unknown Verified 10/26/18 20:14 oxycodone Allergy unknown Verified 10/26/18 20:14 Penicillins Allergy unknown Verified 10/26/18 20:14 prednisone Allergy unknown Verified 10/26/18 20:14 prochlorperazine Allergy unknown Verified 10/26/18 20:14 [From Compazine] prochlorperazine edisylate Allergy unknown Verified 10/26/18 20:14 [From Compazine] prochlorperazine maleate Allergy unknown Verified 10/26/18 20:14 [From Compazine] red (food color) Allergy unknown Verified 10/26/18 20:14 ropinirole Allergy unknown Verified 10/26/18 20:14 nail kyrgyz Allergy Cannot Uncoded 04/10/18 05:07 Remember Home Meds: Home Meds Levothyroxine Sodium [Synthroid] 75 mcg PO SUMOWEFRSA 06/24/15 [History] Levothyroxine [Synthroid] 88 mcg PO TUTH 06/24/15 [History] Magnesium Hydroxide [Milk of Magnesia] 30 ml PO DAILY 06/24/15 [History] Acetaminophen [Tylenol] 650 mg PO Q4H PRN 08/19/17 [History] Acetaminophen/HYDROcodone [[place] 325-5 MG] 1 tab PO QID 08/19/17 [History] Albuterol/Ipratropium [DuoNeb 3.0-0.5 MG/3 ML] 3 ml NEB QID PRN 08/19/17 [ History] Bisacodyl [Dulcolax] 10 mg RC Q3D PRN 08/19/17 [History] Capsaicin 1 applic TOP TID 08/19/17 [History] Citalopram [Citalopram HBr] 20 mg PO DAILY 08/19/17 [History] Diltiazem HCl [Diltiazem 24Hr ER] 120 mg PO DAILY 08/19/17 [History] Fluocinonide/Emollient [Lidex-E 0.05% Crm] 1 applic TOP SUSA@08,20 08/19/17 [ History] Furosemide [Lasix] 40 mg PO DAILY 08/19/17 [History] Multivitamin [Daily Multiple Vitamin] 1 tab PO DAILY 08/19/17 [History] Nystatin [Nystatin Crm] 1 applic TOP BID PRN 08/19/17 [History] Pantoprazole [ProTONIX] 40 mg PO DAILY 08/19/17 [History] Pregabalin [Lyrica] 150 mg PO BID 08/19/17 [History] Sennosides/Docusate Sodium [Senna-S Tablet] 1 each PO DAILY 08/19/17 [History] Sennosides/Docusate Sodium [Senna-S Tablet] 2 tab PO BEDTIME 08/19/17 [History] clonazePAM [Klonopin] 1 mg PO BEDTIME 08/19/17 [History] guaiFENesin [Robitussin] 200 mg PO Q4H PRN 08/19/17 [History] Aspirin 81 mg PO DAILY tab.chew 08/21/17 [Rx] Menthol/Selenium Sulfide [Selsun Blue 1% Shampoo] 1 applic TOP MO 04/10/18 [ History] Mineral Oil 1 applic TOP WE@199904/10/18 [History] Potassium Chloride [Klor-Con 10] 10 meq PO DAILY 04/10/18 [History] Triamcinolone Acetonide [Triamcinolone Acetonide 0.1% Crm] 1 applic TOP MARKO@04/10/18 [History] levoFLOXacin [Levaquin] 750 mg PO Q48H #3 tablet 04/14/18 [Rx] Past Medical History - Past Health History Medical/Surgical History: Denies Medical/Surgical History HEENT History: Reports: Impaired Vision Other HEENT History: wears glasses Cardiovascular History: Reports: Heart Failure, Other (See Below) Other Cardiovascular History: anemia Respiratory History: Reports: Pneumonia, Recurrent Gastrointestinal History: Reports: Other (See Below) Other Gastrointestinal History: glucose intolerance Genitourinary History: Reports: Urinary Incontinence 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: Musculoskeletal History: Reports: Other (See Below) Other Musculoskeletal History: patient has generalized weakness and a history of falls, spinal stenosis, restless leg syndrome total body lift Neurological History: Reports: Migraines, Other (See Below) Other Neuro History: anxiety Psychiatric History: Reports: Anxiety Other Psychiatric History: insomnia Endocrine/Metabolic History: Reports: Hyperthyroidism Other Endocrine/Metabolic History: glucose intolerance, hypothyroidism, Hematologic History: Reports: Anemia Immunologic History: Reports: Other (See Below) Other Immunologic History: rheumatoid arthritis Dermatologic History: Reports: Other (See Below) Other Dermatologic History: contact dermatitis Social & Family History - Family History Family Medical History: Noncontributory - Caffeine Use Caffeine Use: Reports: None Other Caffeine Use: patient confused ED ROS GENERAL - Review of Systems Review Of Systems: Unable To Obtain ED EXAM, GENERAL - Physical Exam Exam: See Below Exam Limited By: Respiratory Distress General Appearance: Lethargic, Severe Distress, Cachetic Eye Exam: Bilateral Eye: Other (unabel to evaluate ) Ears: Normal External Exam Ear Exam: Bilateral Ear: Auricle Normal Nose: Normal Inspection Throat/Mouth: Normal Voice, No Airway Compromise Head: Atraumatic, Normocephalic Neck: Normal Inspection, Supple, Non-Tender, Full Range of Motion Respiratory/Chest: Respiratory Distress, Decreased Breath Sounds, Crackles, Rales, Rhonchi, Wheezing Cardiovascular: Tachycardia, Gallop/S3, Irregularly Irregular GI/Abdominal: Normal Bowel Sounds, Soft, Non-Tender (Female) Exam: Deferred Rectal (Female) Exam: Deferred Back Exam: Normal Inspection, Full Range of Motion Extremities: Pedal Edema, Slow Capillary Refill Neurological: Inattentive, Confused, Disoriented, Slow to Respond Psychiatric: Flat Affect Skin Exam: Warm, Dry, Normal Color, Mottled, Rash (lower extremities) Lymphatic: No Adenopathy EKG INTERPRETATION EKG Date: 10/26/18 Time: 21:00 Rhythm: A-Fib Rate (Beats/Min): 143 [place]: Normal P-Wave: Absent QRS: Normal ST-T: Depressed QT: Normal Comparison: NA - No Prior EKG Course - Vital Signs Text/Narrative:: 88 y.o.w.f was transferred from Hospice to the ED for SOB. Her son wanted to take her out of hospice, did not jimy the papers, however. Pt arrived in the ed in severe resp distress, a fib, moaning. Son arrived stating he wants "everything done but intubation and chest compressions". Pt was in A fib with RVR, BP was fluctuating. BP 94/80 RR 30 Pulse ox 75 on 15 liter O2 NRM. Temp 37.8 pulse 102 PE: Cachectic unkemp 88 y.o.w.f in severe rep distress. Imaging: CXR: R and L hilum enlarged Labs: Lactic acid 6.2 GFR 21 CR 2,4 BUN 41 Na 154 K 4.4 UA: Empty bladder WBC nl Impression: Sepsis, pneumonia, a fib with RVR, acute renal failure, Hypernatremia, DNR/DNI. Tx: NS, Duonebs, Abxs. NS Reexam: Pt did not improve. Plan: Admit to [facility] After the pt was admitted, son came back stating, he has spoken to his mom and she wants "to go". MS was given for comfort. Pt at the inpatient service. Last Recorded V/S: Last Vital Signs Temp 37.9 C 10/26/18 22:36 Pulse 96 10/26/18 22:36 Resp 32 H 10/26/18 22:36 BP 124/57 L 10/26/18 22:36 Pulse Ox 80 L 10/26/18 22:36 - Orders/Labs/Meds Orders: Active Orders 24 hr Category Date Time Status EKG Documentation Completion [RC] ASDIRECTED Care 10/26/18 20:56 Active CXR [Chest 1V Frontal] [CR] Stat Exams 10/26/18 20:18 Taken CULTURE BLOOD [BC] Urgent Lab 10/26/18 20:55 Results CULTURE BLOOD [BC] Urgent Lab 10/26/18 21:05 Results Blood Culture x2 Reflex Set [OM.PC] Urgent Oth 10/26/18 20:25 Ordered EKG 12 Lead [EK] Routine Ther 10/26/18 20:56 Ordered Labs: Laboratory Tests 10/26/18 10/26/18 10/26/18 Range/Units 21:05 21:05 21:05 WBC 5.2 (4.5-12.0) X10-3/uL RBC 5.27 H (3.23-5.20) x10(6)uL Hgb 15.7 H (11.5-15.5) g/dL Hct 48.5 D (30.0-51.3) % MCV 92.1 (80-96) fL MCH 29.8 (27.7-33.6) pg MCHC 32.3 (32.2-35.4) g/dL RDW 15.3 (11.5-15.5) % Plt Count 253 (125-369) X10(3)uL MPV 8.7 (7.4-10.4) fL Add Manual Diff Yes Neutrophils % (Manual) 70 (46-82) % Lymphocytes % (Manual) 22 (13-37) % Monocytes % (Manual) 8 (4-12) % PT 17.6 H (8.7-11.1) INR 1.82 H (0.89-1.13) Sodium 154 H D (135-145) mmol/L Potassium 4.3 (3.5-5.3) mmol/L Chloride 114 H D (100-110) mmol/L Carbon Dioxide 26 (21-32) mmol/L BUN 41 H D (7-18) mg/dL Creatinine 2.2 H* (0.55-1.02) mg/dL Est Cr Clr Drug Dosing TNP Estimated GFR (MDRD) 21 L (>60) BUN/Creatinine Ratio 18.6 (9-20) Glucose 85 (80-116) mg/dL Lactic Acid (0.4-2.2) mmol/L Calcium 8.9 (8.6-10.2) mg/dL 10/26/18 Range/Units 21:05 WBC (4.5-12.0) X10-3/uL RBC (3.23-5.20) x10(6)uL Hgb (11.5-15.5) g/dL Hct (30.0-51.3) % MCV (80-96) fL MCH (27.7-33.6) pg MCHC (32.2-35.4) g/dL RDW (11.5-15.5) % Plt Count (125-369) X10(3)uL MPV (7.4-10.4) fL Add Manual Diff Neutrophils % (Manual) (46-82) % Lymphocytes % (Manual) (13-37) % Monocytes % (Manual) (4-12) % PT (8.7-11.1) INR (0.89-1.13) Sodium (135-145) mmol/L Potassium (3.5-5.3) mmol/L Chloride (100-110) mmol/L Carbon Dioxide (21-32) mmol/L BUN (7-18) mg/dL Creatinine (0.55-1.02) mg/dL Est Cr Clr Drug Dosing Estimated GFR (MDRD) (>60) BUN/Creatinine Ratio (9-20) Glucose (80-116) mg/dL Lactic Acid 6.2 H* (0.4-2.2) mmol/L Calcium (8.6-10.2) mg/dL Meds: Medications Discontinued Medications Generic Name Dose Route Start Last Admin Trade Name Freq PRN Reason Stop Dose Admin Albuterol 2.5 mg 10/26/18 22:14 Proventil Neb Soln NEB Q2H PRN Shortness Of Breath/wheezing Ceftriaxone Sodium 1 gm 10/26/18 21:20 10/26/18 21:20 Rocephin IVPUSH 10/26/18 21:21 1 gm STAT ONE Administration Diltiazem HCl 20 mg 10/26/18 21:09 10/26/18 22:05 Diltiazem IVPUSH 10/26/18 21:10 20 mg ONETIME STA Administration Ceftriaxone Sodium 1 gm/ 50 mls @ 200 mls/hr 10/26/18 21:09 10/26/18 22:17 Sodium Chloride IV 10/26/18 21:23 Not Given ONETIME STA Piperacillin Sod/Tazobactam 50 mls @ 100 mls/hr 10/26/18 21:09 10/26/18 21:35 Sod 3.375 gm/ Sodium Chloride IV 10/26/18 21:38 100 mls/hr Q6H STA Administration Sodium Chloride 1,000 mls @ 125 mls/hr 10/26/18 22:30 10/26/18 23:09 Normal Saline IV 125 mls/hr ASDIRECTED KARYNA Administration Morphine Sulfate 1 mg 10/26/18 22:45 10/26/18 23:07 Morphine IVPUSH 1 mg Q2H KARYNA Administration Sodium Chloride 10 ml 10/26/18 22:17 Saline Flush FLUSH ASDIRECTED PRN Keep Vein Open Sodium Chloride 10 ml 10/26/18 22:14 Saline Flush FLUSH ASDIRECTED PRN Keep Vein Open Departure - Departure Time of Disposition: 23:00 Disposition: Admitted As Inpatient 67 Condition: Critical Clinical Impression: Sepsis associated hypotension - Discharge Information - My Orders Last 24 Hours: My Active Orders 10/26/18 20:18 CXR [Chest 1V Frontal] [CR] Stat 10/26/18 20:25 Blood Culture x2 Reflex Set [OM.PC] Urgent 10/26/18 20:55 CULTURE BLOOD [BC] Urgent 10/26/18 20:56 EKG Documentation Completion [RC] ASDIRECTED EKG 12 Lead [EK] Routine 10/26/18 21:05 CULTURE BLOOD [BC] Urgent - Assessment/Plan Last 24 Hours: My Active Orders 10/26/18 20:18 CXR [Chest 1V Frontal] [CR] Stat 10/26/18 20:25 Blood Culture x2 Reflex Set [OM.PC] Urgent 10/26/18 20:55 CULTURE BLOOD [BC] Urgent 10/26/18 20:56 EKG Documentation Completion [RC] ASDIRECTED EKG 12 Lead [EK] Routine 10/26/18 21:05 CULTURE BLOOD [BC] Urgent
[2018-10-26] MEDS ORDERED: cefTRIAXone 1 GM in Sodium Chloride 0.9% 50 ML IV STA (21:09)
[2018-10-26] MEDS ORDERED: Piperacillin/Tazobactam 3.375 GM in Sodium Chloride 0.9% 50 ML IV STA (21:09)
[2018-10-26] MEDS ORDERED: Diltiazem 25 MG/5 ML SDV IVPUSH STA (21:09)
[2018-10-26] MEDS ORDERED: cefTRIAXone 1 GM Vial IVPUSH ONE (21:20)
[2018-10-26] MEDS ORDERED: Albuterol 0.083% 2.5 MG/3 ML Neb Soln NEB PRN (22:14)
[2018-10-26] MEDS ORDERED: Sodium Chloride 0.9% 10 ML Syringe FLUSH PRN ×2 (22:14→22:17)
[2018-10-26] MEDS ORDERED: Sodium Chloride 0.9% 1,000 ML IV SCH (22:30)
[2018-10-26] MEDS ORDERED: Morphine 2 MG/ML Syringe IVPUSH SCH (22:45)
[2018-10-26 23:22] VITALS: BP 124/57
--- NOTE | 2018-10-28 11:32 | CR ---
INDICATION: Short of breath. CHEST: Portable AP upright view of the chest 10/26/18 was compared with and 11/22/17, again revealing the heart to be enlarged. There is a pleural effusion on the left, which is increased compared with the previous study. The presence of bilateral infiltrates centrally and into the lung bases and also possibly extending into the upper lobes is noted. This appearance may be on the basis of aspiration pneumonia or widespread metastatic disease with somewhat nodular appearance, perihilar in location. These findings are new compared with the previous examination for the most part. The upper lung field pulmonary vasculature does not appear grossly engorged to suggest CHF. Osteoarthritic changes are noted at the glenohumeral joint on the right. Apparent resection of the left humeral metaphysis is noted, as previously. IMPRESSION: Findings felt to be most compatible with aspiration pneumonia, although a process such as extensive metastatic disease with nodular and lymphangitic spread would be a consideration also - correlate clinically. MTDD
== END 2018-10-26 23:55 | disposition expired ==
LOC: FB.ED 20:00 → FB.MS 22:14
PROVIDERS: ADMIT Family Medicine; ATTEND Family Medicine
DX: A41.9 Sepsis, unspecified organism (principal); I95.9 Hypotension, unspecified; I48.91 Unspecified atrial fibrillation; R06.03 Acute respiratory distress; I50.9 Heart failure, unspecified; E05.90 Thyrotoxicosis, unspecified without thyrotoxic crisis or storm; Z88.0 Allergy status to penicillin; Z88.5 Allergy status to narcotic agent; Z88.8 Allergy status to other drugs, medicaments and biological substances; Z91.02 Food additives allergy status; Z91.09 Other allergy status, other than to drugs and biological substances; Z79.82 Long term (current) use of aspirin; Z79.899 Other long term (current) drug therapy
CPT/HCPCS: 36415; 71045; 80048; 83605; 85025; 85610; 87040; 93005; 96365; 96375; 99285-25; G0378; J0696; J2270; J2543; J3490; J7030; J7050